=== PATIENT | female | born 1975 | race Caucasian/White ===

== ENCOUNTER → 2016-12-23 | Outpatient (CLI) | payer MEDICARE ==
[~2016-12-23] MED LIST: ALBU0.08 NEB; ALBU6.7H INH; ALPR.25 PO; BUDE.25I NEB; CLEAPOW6 PO; COMMODE 3:1; DILT60CA PO; DILTCD120 PO; FLUT1INH7 INH; FLUT1SPR5 EACH NARE; HOSPITAL BED SEMI; INFE50IN2 IV-CENTRAL; LORTA5 PO; METO25 PO; METO25TA3 PO; MONT10 PO; MONT10TA2 PO; NP T60TA PO; PANT40TA3 PO; PATA0.2S EACH EYE; PATA0.6S; PATADAY EACH EYE; PATANASE INH; PROT40TA PO; PROV10TA PO; TIRO150C PO; VITADRO3 PO; WALKER ROLLING; WHEELCHAIR RENTAL; ZOLE5P IV
[2016-12-23 14:00] LABS: BASOPHIL # 0.1 TH/MM3 (0-0.2); EOSINOPHIL # 0.4 TH/MM3 (0-0.4); EOSINOPHIL % 3.8 % (0.0-4.0); HEMATOCRIT 37.7 % (35.0-46.0); HEMO FLAGS DIFF FINAL; LYMPHOCYTE # 1.9 TH/MM3 (1.0-4.8); MEAN CORPUSCULAR HEMOGLOBIN 27.7 PG (27.0-34.0); MEAN CORPUSCULAR HGB CONC 32.6 % (32.0-36.0); MONO % 5.2 % (0.0-8.0); PLATELET COUNT 264 TH/MM3 (150-450); RED BLOOD COUNT 4.44 MIL/MM3 (4.00-5.30); WHITE BLOOD COUNT 9.9 TH/MM3 (4.0-11.0)
[2016-12-23 14:11] LABS: BACTERIA, URINE FEW /hpf; BLOOD, URINE LARGE (NEG); GLUCOSE,URINE NEG (NEG); KETONE, URINE NEG (NEG); NITRITE,URINE NEG (NEG); SQUAMOUS EPITHELIAL CELL URINE 1 /hpf (0-5)
[2016-12-23 14:12] LABS: URINE COLOR LIGHT-RED (YELLW/STRAW)
[2016-12-23 14:29] LABS: ANION GAP 6 MEQ/L (5-15); AST (GOT) 10 U/L (15-37); BICARBONATE 25.8 MEQ/L (21.0-32.0); BLOOD UREA NITROGEN 9 MG/DL (7-18); CHLORIDE 107 MEQ/L (98-107); GLOMERULAR FILTRATION RATE 90 ML/MIN (>89); GLUCOSE,FASTING 90 MG/DL (74-99); POTASSIUM 3.8 MEQ/L (3.5-5.1); SODIUM (NA) 139 MEQ/L (136-145)
[2016-12-23 14:36] LABS: ALKALINE PHOSPHATASE 77 U/L (45-117); ALT (GPT) 22 U/L (10-53); TOTAL BILIRUBIN ADULT 0.5 MG/DL (0.2-1.0)
[2016-12-23 14:40] LABS: BHCG SCREEN QUALITATIVE LESS THAN 1 MIU/ML (0-5)
== END ==
LOC: CPRE 12:51
PROVIDERS: ATTEND Obstetrics & Gynecology
DX: Z01.812 Encounter for preprocedural laboratory examination (principal); N92.0 Excessive and frequent menstruation with regular cycle
CPT/HCPCS: 36415; 80053; 81001; 84703; 85025

== ENCOUNTER → 2016-12-30 | Day surgery (SDC) | payer MEDICARE ==
[~2016-12-30] VITALS: Ht 154.9 cm; Wt 62.0 kg
[~2016-12-30] MED LIST changes: +ACETAMINOPHEN 1000 MG/100 ML 100 ML IV ONE; +ACETAMINOPHEN/HYDROcodone 325 MG/5 MG TAB PO PRN; -ALPR.25 PO; +APREPITANT 40 MG CAP ONE; -BUDE.25I NEB; +CHLORHEXIDINE GLUCONATE 2 % 1 PACK (2 CLOTHS) TOPICAL PRN; -CLEAPOW6 PO; -COMMODE 3:1; +DEXAMETHASONE SOD PHOS 4 MG/ML VIAL IV ONE; -DILTCD120 PO; +DO NOT ADM ANY ANTICOAGULANT DRUGS PRN; -HOSPITAL BED SEMI; +INSULIN HUMAN REGULAR 1,000 UNITS/10 ML VIAL SQ PRN; +KETOROLAC TROMETHAMINE 30 MG/ML (IVP) VIAL IV PUSH ONE; +LACTATED RINGER'S 1000 ML IV PRN; +LIDOCAINE HCL 1% PF 5 ML AMPULE OTHER ONE; -LORTA5 PO; -METO25 PO; +METOPROLOL TARTRATE 25 MG TAB PO PRN; +MIDAZOLAM HCL 2 MG/2 ML VIAL IV ONE; -MONT10 PO; -NP T60TA PO; +ONDANSETRON HCL 4 MG/2 ML VIAL IV PUSH ONE; +ONDANSETRON HCL 4 MG/2 ML VIAL IV PUSH PRN; -PATADAY EACH EYE; -PATANASE INH; +POVIDONE IODINE 5% (ANTISEPSIS KIT) 4 APPLICATIONS EACH NARE PRN; +PROPOFOL 200 MG/20 ML AMP IV ONE; -PROT40TA PO; +SODIUM CHLORID 0.9% 500 ML IV PRN; +SODIUM CHLORIDE 0.9% FLUSH 10 ML FLUSH IV FLUSH PRN; -WALKER ROLLING; -WHEELCHAIR RENTAL; +ePHEDrine/NS 25 MG/5 ML SYR IV ONE
--- NOTE | 2016-12-30 09:49 | MP ---
cc: MIAH JC DATE OF SURGERY: 12/30/2016 PREOPERATIVE DIAGNOSIS Menometrorrhagia. POSTOPERATIVE DIAGNOSIS Menometrorrhagia. PROCEDURE Examination under anesthesia, dilation and curettage of the uterus, hysteroscopic exam, and endometrial ablation. ANESTHESIA General. SURGEON Janette Jc MD FINDINGS On examination under anesthesia the vagina was clean, the cervix was small and nulliparous without any lesions. The uterus was normal size, shape and consistency, freely mobile. The adnexa was negative for masses. The hysteroscopic exam revealed a normal endometrial cavity without any polyps or submucous myomas. The endometrium was noted to be fluffy. D&C revealed a normal amount of endometrial tissue. The endometrial ablation was carried out with a length of 4.5 x a width of 3.5, with excellent results. COMPLICATIONS None. COUNTS Correct. ESTIMATED BLOOD LOSS Minimal. CONDITION The patient tolerated the procedure well and went to the recovery room in good condition. DETAILS OF PROCEDURE The patient was taken to the operating room, identified by name band and verbally, given a general anesthetic, placed in the dorsal lithotomy position, prepped and draped in the usual sterile fashion for vaginal surgery. A timeout was taken and examination under anesthesia was carried out. A speculum was placed into the vagina. The anterior lip of the cervix was grasped with a single-tooth tenaculum. The cervix was serially dilated without difficulty, the hysteroscope inserted and the entire endometrial cavity carefully inspected. It was a difficult hysteroscopy, probably suboptimal. At this point the hysteroscope was removed and the endometrial ablation device placed the length of 4.5 and width of 3.5. Ablation was carried out without difficulty. At this point all instruments were removed. She tolerated the procedure well. She did get Emend and multiple other medications to prevent post-op nausea. Janette Jc MD RJV/BT /9:29 AM /9:35 AM
[2016-12-30 10:38] VITALS: BP 101/71; PULSE 77; RESP 18; TEMP 97.4; O2SAT 98
--- NOTE | 2016-12-30 14:52 | EKG ---
Date Performed: 12/30/2016 Time Performed: 07:18:26 PTAGE: 41 years EKG: Sinus rhythm NORMAL ECG NO PREVIOUS TRACING DOCTOR: Yahir Garcia Interpretating Date/Time 12/30/2016 14:51:41
== END | disposition home or self-care (01) ==
LOC: HSDC 06:03
PROVIDERS: ATTEND Obstetrics & Gynecology
DX: N92.1 Excessive and frequent menstruation with irregular cycle (principal); J45.909 Unspecified asthma, uncomplicated; E03.9 Hypothyroidism, unspecified; K21.9 Gastro-esophageal reflux disease without esophagitis; M79.7 Fibromyalgia; I49.9 Cardiac arrhythmia, unspecified; Z01.810 Encounter for preprocedural cardiovascular examination
CPT/HCPCS: 00952; 58563; 88305; 93005; J0131; J1642; J7120; J8501; J1100; J1885; J2250; J2405; J3010

== ENCOUNTER 2017-08-16 20:37 | Inpatient (IN) | payer MEDICARE, MEDICAID ==
[~2017-08-16 20:37] MED LIST changes: -ACETAMINOPHEN 1000 MG/100 ML 100 ML IV ONE; -ACETAMINOPHEN/HYDROcodone 325 MG/5 MG TAB PO PRN; -APREPITANT 40 MG CAP ONE; -CHLORHEXIDINE GLUCONATE 2 % 1 PACK (2 CLOTHS) TOPICAL PRN; -DEXAMETHASONE SOD PHOS 4 MG/ML VIAL IV ONE; -DO NOT ADM ANY ANTICOAGULANT DRUGS PRN; -INSULIN HUMAN REGULAR 1,000 UNITS/10 ML VIAL SQ PRN; -KETOROLAC TROMETHAMINE 30 MG/ML (IVP) VIAL IV PUSH ONE; -LACTATED RINGER'S 1000 ML IV PRN; -LIDOCAINE HCL 1% PF 5 ML AMPULE OTHER ONE; -METOPROLOL TARTRATE 25 MG TAB PO PRN; -MIDAZOLAM HCL 2 MG/2 ML VIAL IV ONE; -ONDANSETRON HCL 4 MG/2 ML VIAL IV PUSH ONE; -ONDANSETRON HCL 4 MG/2 ML VIAL IV PUSH PRN; -POVIDONE IODINE 5% (ANTISEPSIS KIT) 4 APPLICATIONS EACH NARE PRN; -PROPOFOL 200 MG/20 ML AMP IV ONE; -SODIUM CHLORID 0.9% 500 ML IV PRN; -SODIUM CHLORIDE 0.9% FLUSH 10 ML FLUSH IV FLUSH PRN; -ePHEDrine/NS 25 MG/5 ML SYR IV ONE
[2017-08-16 20:39] VITALS: BP 150/71; PULSE 135; RESP 18; TEMP 97.7; O2SAT 99
[2017-08-16] MEDS ORDERED: SODIUM CHLOR 0.9% 1000 ML INJ 1,000 ML IV SCH (20:53)
[2017-08-16 20:55] VITALS: BP 132/62; PULSE 83; RESP 16; O2SAT 98
--- NOTE | 2017-08-16 20:55 | PD ---
HPI Chief Complaint: Abdominal Pain Time Seen by Provider: 20:46 Travel History International Travel<30 days: No Contact w/Intl Traveler<30days: No Traveled to known affect area: No History of Present Illness HPI 42-year-old female with history of hypertension, asthma, breast cancer, currently on oral chemotherapy, gallstones, colostomy status post perforated colon, presents emergency department for evaluation of right upper quadrant pain. Patient states this began this morning and has worsened throughout the day. At this time she rates it a 7 out of 10, constant. She does recall that yesterday her colostomy started having liquidy stools. She denies any jett red or black tarry output. She denies any fever or chills. Patient states she has been nauseous without any vomiting. She has been eating less due to a poor appetite and often supplements with shakes. She reports normal urinary output. She has not been on any recent antibiotics. She has followed at [facility] and by Dr. Renee in [place] for her cancer. Her only other abdominal surgeries are . She has no other symptoms to report at this time. PFSH Past Medical History Anemia: Yes Arthritis: No Asthma: Yes Autoimmune Disease: No Anxiety: Yes Depression: No Heart Rhythm Problems: Yes (tachycardia) Cancer: Yes (LEUKEMIA, SKIN CA, SUBQ T CELL, LEFT BREAST CA, THYROID CA) Cardiovascular Problems: Yes High Cholesterol: No Chemotherapy: Yes Chest Pain: No Congestive Heart Failure: No COPD: Yes Cerebrovascular Accident: No Diabetes: No Diminished Hearing: No Endocrine: Yes Gastrointestinal Disorders: Yes (PERFORATED COLON, DIVERTICULOSIS) GERD: Yes Genitourinary: No Headaches: Yes Hepatitis: No Hiatal Hernia: No Hypertension: Yes Immune Disorder: Yes (weaken by chemotherapy) Implanted Vascular Access Dvce: Yes Kidney Stones: Yes Musculoskeletal: Yes (OSTEOPOROSIS) Neurologic: Yes (SHUNT USED FOR CHEMO) Psychiatric: Yes (ANXIETY) Reproductive: No Respiratory: Yes (ASTHMA, BORDERINE COPD) Integumentary: Yes (RASH, SKIN CA) Immunizations Current: Yes Migraines: Yes Radiation Therapy: Yes Renal Failure: No Seizures: No Sickle Cell Disease: No Sleep Apnea: No Thyroid Disease: Yes (thyroid removed r/t cancer) Ulcer: No ?: Not Menopausal: No : 2 Para: 2 Past Surgical History Abdominal Surgery: Yes (colostomy) AICD: No Arteriovenous Shunt: No Body Medical Devices: o[place], talia in left lung, RIGHT CHEST PORT Cardiac Surgery: No Section: Yes Ear Surgery: No Endocrine Surgery: Yes (Thyroid removed) Eye Surgery: Yes (Cataract removed) Genitourinary Surgery: No Gynecologic Surgery: Yes (2 C-sections, 4X LEFT LUMPECTOMY) Insulin Pump: No Joint Replacement: No Neurologic Surgery: Yes (RESEVORE in right right side OF SCALP for chemo) Oral Surgery: No Pacemaker: No Thoracic Surgery: Yes (LLL of lung small piece) Other Surgery: Yes (DEVIATE SEPTUM) Social History Alcohol Use: Yes (RARELY) Tobacco Use: No Substance Use: No Allergies-Medications (Allergen,Severity, Reaction): Coded Allergies: aspirin (Unverified Allergy, Severe, 08/16/17) ibuprofen (Verified Allergy, Severe, RESPIRATORY DISTRESS, 08/16/17) latex (Unverified Allergy, Severe, 08/16/17) onion (Verified Allergy, Severe, SHORTNESS OF BREATH, 08/16/17) peanut (Verified Allergy, Severe, Anaphylaxis, 08/16/17) shellfish derived (Verified Allergy, Severe, Anaphylaxis, 08/16/17) Fish Containing Products (Unverified Allergy, Mild, 08/16/17) bee venom protein (honey bee) (Unverified Allergy, Mild, 08/16/17) clindamycin (Unverified Allergy, Mild, Rash, 08/16/17) fluconazole (Unverified Allergy, Mild, 08/16/17) ipratropium (Unverified Allergy, Mild, 08/16/17) penicillin G (Unverified Allergy, Mild, Rash, 08/16/17) Uncoded Allergies: LIDOCAINE WITH EPINEPHRINE (Allergy, Severe, Anaphylaxis, 12/30/16) PT STATES SHE IS ALLERGIC TO THE PRESERVATIVE IN LIDOCAINE WITH EPI. SHE CAN TOLERAT LIDOCAINE SEPARATLY AND EPINEPHRINE SEPERATLY ITS THE PRESERVATIVE Reported Meds & Prescriptions Reported Meds & Active Scripts Active Reported Epinephrine Inj (Epinephrine) 0.15 Mg/0.3 Ml Inj 0.3 Mg IM DIRECTED Ondansetron (Ondansetron HCl) 8 Mg Tab 8 Mg PO TID Sumatriptan (Sumatriptan Succinate) 25 Mg Tab 25 Mg PO ONCE PRN If a satisfactory response has not been obtained at 2 hours, a second dose may be administered Flexeril (Cyclobenzaprine HCl) 10 Mg Tab 10 Mg PO TID Tirosint (Levothyroxine Sodium) 13 Mcg Cap 13 Mcg DAILY Erivedge (Vismodegib) 150 Mg Cap Breo Ellipta Inh (Fluticasone/Vilanterol) 200-25 Mcg/Act Inh 1 Puff INH DAILY Use daily at the same time. Singulair (Montelukast Sodium) 10 Mg Tab 10 Mg PO HS Infed Inj (Iron Dextran) 100 Mg/2 Ml Inj 100 Mg IV-CENTRAL MONTHLY PRN Flonase Nasal [place] (Fluticasone Nasal [place]) 50 Mcg/Act [place] 50 Mcg EACH NARE BID Proventil Hfa 6.7 GM Inh (Albuterol Sulfate) 90 Mcg/Act Aer 2 Puff INH Q6H PRN Albuterol Neb (Albuterol Sulfate) 2.5 Mg/3 Ml Neb 2.5 Mg NEB Q4HR NEB PRN Metoprolol Tartrate 25 Mg Tab 12.5 Mg PO BID Diltiazem ER 12 HR (Diltiazem HCl) 60 Mg Caper 60 Mg PO DAILY Pantoprazole (Pantoprazole Sodium) 40 Mg Tab 40 Mg PO BID Review of Systems Except as stated in HPI: all other systems reviewed are Neg Physical Exam Narrative GENERAL: Well-nourished female patient, lying in bed. Appears uncomfortable but without any significant distress. SKIN: Focused skin assessment warm/dry. HEAD: Atraumatic. Normocephalic. EYES: Pupils equal and round. No scleral icterus. No injection or drainage. ENT: No nasal bleeding or discharge. Mucous membranes pink and moist. NECK: Trachea midline. No JVD. CARDIOVASCULAR: Tachycardic rate and rhythm. No murmur appreciated. RESPIRATORY: No accessory muscle use. Clear to auscultation. Breath sounds equal bilaterally. GASTROINTESTINAL: Abdomen soft, nondistended. Right upper quadrant epigastric tenderness to palpation. No guarding. No rebound tenderness. Patient does have a colostomy in place. MUSCULOSKELETAL: No obvious deformities. No clubbing. No cyanosis. No edema. NEUROLOGICAL: Awake and alert. No obvious cranial nerve deficits. Motor grossly within normal limits. Normal speech. PSYCHIATRIC: Appropriate mood and affect; insight and judgment normal. Data Data Last Documented VS Vital Signs Date Time Temp Pulse Resp B/P (MAP) Pulse Ox O2 Delivery O2 Flow Rate FiO2 08/16/17 21:05 14 97 Room Air 08/16/17 20:55 83 08/16/17 20:39 97.7 Orders Orders Complete Blood Count With Diff (08/16/17 20:53) Comprehensive Metabolic Panel (08/16/17 20:53) Lipase (08/16/17 20:53) Prothrombin Time / Inr (Pt) (08/16/17 20:53) Act Partial Throm Time (Ptt) (08/16/17 20:53) Urinalysis - C+S If Indicated (08/16/17 20:53) Ct Abd/Pel W Iv Contrast(Rout) (08/16/17 20:53) Iv Access Insert/Monitor (08/16/17 20:53) Ecg Monitoring (08/16/17 20:53) Oximetry (08/16/17 20:53) Sodium Chlor 0.9% 1000 Ml Inj (Ns 1000 M (08/16/17 20:53) Sodium Chloride 0.9% Flush (Ns Flush) (08/16/17 21:00) Prochlorperazine Inj (Compazine Inj) (08/16/17 21:00) Diphenhydramine Inj (Benadryl Inj) (08/16/17 21:00) C Diff Toxin Pcr (08/16/17 20:56) Lactic Acid Sepsis Protocol (08/16/17 20:57) Hydromorphone Pf Inj (Dilaudid Pf Inj) (08/16/17 21:15) Labs Laboratory Tests Test 08/16/17 21:10 White Blood Count 8.0 TH/MM3 Red Blood Count 4.46 MIL/MM3 Hemoglobin 12.3 GM/DL Hematocrit 37.9 % Mean Corpuscular Volume 84.9 FL Mean Corpuscular Hemoglobin 27.6 PG Mean Corpuscular Hemoglobin Concent 32.5 % Red Cell Distribution Width 15.3 % Platelet Count 287 TH/MM3 Mean Platelet Volume 9.7 FL Neutrophils (%) (Auto) 55.8 % Lymphocytes (%) (Auto) 31.2 % Monocytes (%) (Auto) 6.3 % Eosinophils (%) (Auto) 6.0 % Basophils (%) (Auto) 0.7 % Neutrophils # (Auto) 4.4 TH/MM3 Lymphocytes # (Auto) 2.5 TH/MM3 Monocytes # (Auto) 0.5 TH/MM3 Eosinophils # (Auto) 0.5 TH/MM3 Basophils # (Auto) 0.1 TH/MM3 CBC Comment DIFF FINAL Differential Comment Prothrombin Time 10.2 SEC Prothromb Time International Ratio 1.0 RATIO Activated Partial Thromboplast Time 28.2 SEC Lactic Acid Level 1.1 mmol/L MDM Medical Decision Making Medical Screen Exam Complete: Yes Emergency Medical Condition: Yes Medical Record Reviewed: Yes Differential Diagnosis Cholecystitis versus cholelithiasis versus gastritis versus pancreatitis versus diverticulitis versus obstruction versus colitis versus gastroenteritis Narrative Course 42-year-old female presents emergency department for evaluation of abdominal pain worsening throughout the day. Patient appears nontoxic. She is initially tachycardic. She is treated for pain and given IV normal saline fluid bolus. Abdominal exam is with tenderness in the epigastrium and right upper quadrant. I discussed the patient my attending physician. She has also assessed the patient. lab work and CT imaging is ordered. 2300 CT imaging is pending; care is assumed by my attending who will disposition pt appropriately. Diagnosis Primary Impression: Abdominal pain Qualified Codes: R10.11 - Right upper quadrant pain Condition: Stable KumarLiliana GAYTAN August 16, 2017 20:55
[2017-08-16] MEDS ORDERED: VISM150C (21:00)
[2017-08-16] MEDS ORDERED: SODIUM CHLORIDE 0.9% FLUSH 10 ML FLUSH IV FLUSH PRN (21:00)
[2017-08-16] MEDS ORDERED: PROCHLORPERAZINE INJ 10 MG/2 ML VIAL IV PUSH ONE (21:00)
[2017-08-16] MEDS ORDERED: TIRO13CA (21:00)
[2017-08-16] MEDS ORDERED: EPIN1INJ24 IM (21:00)
[2017-08-16] MEDS ORDERED: ONDA8TAB7 PO (21:00)
[2017-08-16] MEDS ORDERED: CYCL10TA PO (21:00)
[2017-08-16] MEDS ORDERED: diphenhydrAMINE HCL 50 MG/ML VIAL IV PUSH ONE (21:00)
[2017-08-16] MEDS ORDERED: SUMA25TA2 PO (21:00)
[2017-08-16] MEDS ORDERED: HYDROmorphone HCL PF 1 MG/ML VIAL IVS ONE (21:00)
--- NOTE | 2017-08-16 21:02 | PD ---
Physical Exam Narrative General: The patient is a well-developed well-nourished female, uncomfortable appearing on exam. Head and Neck exam: Head is normocephalic atraumatic. Eyes: EOMI, pupils are equal round and reactive to light. Nose: Midline septum with pink mucous membranes Mouth: Dentition unremarkable. Moist mucus membranes. Posterior oropharynx is not erythematous. No tonsillar hypertrophy. Uvula midline. Airway patent. Neck: No palpable lymphadenopathy. No nuchal rigidity. No thyromegaly. Cardiovascular: Sinus bradycardia in the 50s without murmurs, gallops, or rubs. No pulse deficit to the extremities on simultaneous auscultation and palpation of her radial artery. The patient has a an [id number] in place in the right upper chest that appears to be in good repair without any surrounding erythema, edema , or drainage. No tenderness on palpation. Lungs: Clear to auscultation bilaterally. No wheezes, rhonchi, or rales. Abdomen: Soft, with tenderness on palpation in the right upper and lower quadrant, reportedly worse on palpation of the right upper quadrant, no other tenderness on palpation of the other quadrants of the abdomen, colostomy bag is in place and appears to be in good repair. No guarding, rebound, or rigidity. Normal bowel sounds are audible. Negative Paz sign. Extremities: No clubbing, cyanosis, or edema. 2+ pulses in all 4 extremities. No calf tenderness on palpation. Back: No costovertebral angle tenderness to palpation. Neurologic Exam: Grossly nonfocal. Skin Exam: No rash noted. Intact skin that is warm and dry. Data Data Last Documented VS Vital Signs Date Time Temp Pulse Resp B/P (MAP) Pulse Ox O2 Delivery O2 Flow Rate FiO2 08/17/17 00:15 53 16 144/65 (91) 98 Room Air 08/16/17 20:39 97.7 Orders Orders Complete Blood Count With Diff (08/16/17 20:53) Comprehensive Metabolic Panel (08/16/17 20:53) Lipase (08/16/17 20:53) Prothrombin Time / Inr (Pt) (08/16/17 20:53) Act Partial Throm Time (Ptt) (08/16/17 20:53) Urinalysis - C+S If Indicated (08/16/17 20:53) Ct Abd/Pel W Iv Contrast(Rout) (08/16/17 20:53) Iv Access Insert/Monitor (08/16/17 20:53) Ecg Monitoring (08/16/17 20:53) Oximetry (08/16/17 20:53) Sodium Chlor 0.9% 1000 Ml Inj (Ns 1000 M (08/16/17 20:53) Sodium Chloride 0.9% Flush (Ns Flush) (08/16/17 21:00) Prochlorperazine Inj (Compazine Inj) (08/16/17 21:00) Diphenhydramine Inj (Benadryl Inj) (08/16/17 21:00) C Diff Toxin Pcr (08/16/17 20:56) Lactic Acid Sepsis Protocol (08/16/17 20:57) Hydromorphone Pf Inj (Dilaudid Pf Inj) (08/16/17 21:15) Potassium Chloride (Kcl) (08/16/17 22:30) Calcium Chloride Inj (Calcium Chloride I (08/16/17 22:30) Potassium Chlor 20 Meq Premix (Kcl 20 Me (08/16/17 22:24) Iohexol 350 Inj (Omnipaque 350 Inj) (08/16/17 22:45) Urine Culture (08/17/17 00:05) Vancomycin Inj (Vancomycin Inj) (08/17/17 00:24) Aztreonam Inj (Azactam Inj) (08/17/17 00:24) Metronidazole 500 Mg Inj (Flagyl 500 Mg (08/17/17 00:24) Magnesium (Mg) (08/17/17 00:30) Admit Order (Ed Use Only) (08/17/17 00:32) Consult General Surgery (08/17/17 ) Labs Laboratory Tests Test 08/16/17 21:10 08/17/17 00:05 White Blood Count 8.0 TH/MM3 Red Blood Count 4.46 MIL/MM3 Hemoglobin 12.3 GM/DL Hematocrit 37.9 % Mean Corpuscular Volume 84.9 FL Mean Corpuscular Hemoglobin 27.6 PG Mean Corpuscular Hemoglobin Concent 32.5 % Red Cell Distribution Width 15.3 % Platelet Count 287 TH/MM3 Mean Platelet Volume 9.7 FL Neutrophils (%) (Auto) 55.8 % Lymphocytes (%) (Auto) 31.2 % Monocytes (%) (Auto) 6.3 % Eosinophils (%) (Auto) 6.0 % Basophils (%) (Auto) 0.7 % Neutrophils # (Auto) 4.4 TH/MM3 Lymphocytes # (Auto) 2.5 TH/MM3 Monocytes # (Auto) 0.5 TH/MM3 Eosinophils # (Auto) 0.5 TH/MM3 Basophils # (Auto) 0.1 TH/MM3 CBC Comment DIFF FINAL Differential Comment Prothrombin Time 10.2 SEC Prothromb Time International Ratio 1.0 RATIO Activated Partial Thromboplast Time 28.2 SEC Blood Urea Nitrogen 6 MG/DL Creatinine 0.50 MG/DL Random Glucose 85 MG/DL Total Protein 5.9 GM/DL Albumin 3.1 GM/DL Calcium Level 6.8 MG/DL Alkaline Phosphatase 58 U/L Aspartate Amino Transf (AST/SGOT) 13 U/L Alanine Aminotransferase (ALT/SGPT) 14 U/L Total Bilirubin 0.2 MG/DL Sodium Level 146 MEQ/L Potassium Level 2.9 MEQ/L Chloride Level 114 MEQ/L Carbon Dioxide Level 24.2 MEQ/L Anion Gap 8 MEQ/L Estimat Glomerular Filtration Rate 137 ML/MIN Lactic Acid Level 1.1 mmol/L Protein Corrected Calcium 7.4 MG/DL Magnesium Level 1.4 MG/DL Lipase 82 U/L Urine Color LIGHT-YELLOW Urine Turbidity HAZY Urine pH 6.5 Urine Specific [place] 1.023 Urine Protein NEG mg/dL Urine Glucose (UA) NEG mg/dL Urine Ketones NEG mg/dL Urine Occult Blood NEG Urine Nitrite NEG Urine Bilirubin NEG Urine Urobilinogen LESS THAN 2.0 MG/DL Urine Leukocyte Esterase LARGE Urine RBC 2 /hpf Urine WBC 89 /hpf Urine Squamous Epithelial Cells 11 /hpf Urine Transitional Epithelial Cells 2 /hpf Urine Renal Epithelial Cells 1 /hpf Microscopic Urinalysis Comment CULTURE INDICATED MDM Medical Record Reviewed: Yes Supervised Visit with KIRK: Yes Narrative Course I, Dr. Gilliam, have reviewed the advance practice practitioner's documentation and am in agreement, met with the patient face to face, made the diagnosis, and the medical decision making was done by me. The patient was initially evaluated by Liliana, the nurse practitioner. Please see their complete history and physical. *My assessment and Findings: The patient presents with a history of abdominal pain that reportedly began this morning. She reports that the abdominal pain is a cramping sensation that has been constant and gradually worsening with time. She reports the pain is located in the right upper quadrant of the abdomen. She reports that the pain is now sharp in character. She reports that she last ate at noon. Her diet has mainly consisted of boost shakes due to a decreased appetite and she is currently on chemotherapy for breast cancer. She reports that she has had increased liquidy stool from her colostomy bag. She denies having any blood in the stool or mucus in the stool. She reports that she has had nausea and vomiting 2 today. She denies having any known fevers. She reports that she last was on antibiotic 2-1/2 months ago for a skin infection surrounding a site where a skin cancer was removed. She reports that she believes that she was on doxycycline for 10 days. The patient's examination is remarkable for right upper and lower quadrant tenderness on palpation. During the course of the patient's emergency department visit, the patient's history, examination, and differential diagnosis were reviewed with the patient. The patient was placed on a refinery operator assistant with oximetry and frequent blood pressure monitoring. The patient had IV access obtained and blood work sent for analysis. The patient was initially provided hydromorphone for pain, Benadryl 25 mg IV for itching, Compazine 5 mg IV for nausea, normal saline 1 L IV fluid bolus. The patient's laboratory studies were reviewed and remarkable for a white count of 8, hemoglobin 12.3, platelets 287 was 6 eosinophils, Radiology studies were reviewed and remarkable for Last Impressions Abdomen/Pelvis CT 08/16/[id number] Signed Impressions: CONCLUSION: 1. Cholelithiasis and possibility of acute cholecystitis should be entertained in the appropriate clinical setting. 2. Choledocholithiasis is not excluded. 3. Anterior abdominal wall hernia without signs of incarceration or obstructio n. Regarding the patient's CT scan findings a call was placed out to the general surgeon, I spoke to Dr. Nando Smith regarding this patient's case. He agreed to see the patient in consultation. He is agreeable with the plan for the patient to be started on an initial dose of IV antibiotic. The patient has a penicillin allergy, therefore the patient was covered with broad-spectrum antibiotic to include Azactam, Flagyl, and vancomycin. Regarding the possibility of choledocholithiasis, this seems unlikely in this patient as the patient's alkaline phosphatase is not elevated, total bilirubin is within normal limits. The patient additionally has a normal lipase. The patient's results were discussed with the patient, including the plan of care. I explained that further testing and/ or monitoring is indicated based on the patient's history, examination, and/ or laboratory findings. Therefore, I recommended admission for additional evaluation. The patient expressed understanding and was agreeable with this plan. The patient was admitted to the hospital in stable condition and sent to a bed under the care of the [facility] service. Physician Communication Physician Communication The patient's case including history, pertinent physical examination findings, and laboratory studies were discussed with Dr. Smith, the general surgeon, Dr. Azar, the hospitalist. It was agreed that the patient would be admitted to the [facility] service. Diagnosis Primary Impression: Abdominal pain Qualified Codes: R10.11 - Right upper quadrant pain Additional Impression: Acute cholecystitis Admitting Information Admitting Physician Requests: Admit Jennifer Gilliam MD August 16, 2017 21:02
[2017-08-16 21:05] VITALS: RESP 14; O2SAT 97
[2017-08-16] MEDS ORDERED: HYDROmorphone HCL PF 0.5 MG/0.5 ML SYRINGE IV ONE (21:15)
[2017-08-16 21:46] LABS: AUTOMATED NEUTROPHIL # 4.4 TH/MM3 (1.8-7.7); BASOPHIL # 0.1 TH/MM3 (0-0.2); BASOPHIL % 0.7 % (0.0-2.0); EOSINOPHIL # 0.5 TH/MM3 (0-0.4); HEMATOCRIT 37.9 % (35.0-46.0); HEMOGLOBIN 12.3 GM/DL (11.6-15.3); LYMPH % 31.2 % (9.0-44.0); LYMPHOCYTE # 2.5 TH/MM3 (1.0-4.8); MEAN CELL VOLUME 84.9 FL (80.0-100.0); MEAN CORPUSCULAR HEMOGLOBIN 27.6 PG (27.0-34.0); MEAN CORPUSCULAR HGB CONC 32.5 % (32.0-36.0); MEAN PLATELET VOLUME 9.7 FL (7.0-11.0); MONO % 6.3 % (0.0-8.0); MONOCYTE # 0.5 TH/MM3 (0-0.9); NEUT % 55.8 % (16.0-70.0); PLATELET COUNT 287 TH/MM3 (150-450); RED BLOOD COUNT 4.46 MIL/MM3 (4.00-5.30); RED CELL DISTRIBUTION WIDTH 15.3 % (11.6-17.2)
[2017-08-16 21:57] LABS: PROTHROMBIN TIME - PATIENT 10.2 SEC (9.8-11.6)
[2017-08-16 22:20] LABS: ALBUMIN 3.1 GM/DL (3.4-5.0); BICARBONATE 24.2 MEQ/L (21.0-32.0); CALCIUM 6.8 MG/DL (8.5-10.1); CREATININE 0.5 MG/DL (0.50-1.00); TOTAL BILIRUBIN ADULT 0.2 MG/DL (0.2-1.0); TOTAL PROTEIN 5.9 GM/DL (6.4-8.2)
[2017-08-16 22:23] LABS: CALCIUM-PROTEIN CORRECTED 7.4 MG/DL (8.5-10.1)
[2017-08-16] MEDS ORDERED: POTASSIUM CHLOR 20 MEQ PREMIX 100 ML IV STA (22:24)
[2017-08-16] MEDS ORDERED: POTASSIUM CHLORIDE 10 MEQ CONTROLLED RELEASE TAB PO ONE (22:30)
[2017-08-16] MEDS ORDERED: CALCIUM CHLORIDE INJ 1 GM in SODIUM CHLORIDE 0.9% INJ 90 ML IV ONE (22:30)
[2017-08-16] MEDS ORDERED: IOHEXOL 350 MG/ML 10 ML VIAL (for RAD DIAG) IVCONTRAST ONE (22:45)
[2017-08-16 23:21] VITALS: BP 116/76; PULSE 55; RESP 14; O2SAT 98
[2017-08-17] VITALS (8 sets, daily range): BP systolic 101–144; BP diastolic 58–65; PULSE 53–99; RESP 16–18; TEMP 97.2–98.3; O2SAT 96–99
--- NOTE | 2017-08-17 00:09 | RADRPT ---
EXAM DATE: 08/16/2017 11:58 PM EDT AGE/SEX: 42 years / Female INDICATIONS: Abdomen pain. CLINICAL DATA: This is the patient's initial encounter. Patient reports that signs and symptoms have been present for 1 day and indicates a pain score of 5/10. MEDICAL/SURGICAL HISTORY: Carcinoma, breast. Renal calculi. Leukemia. COPD, HTN, perforated bowel. Colostomy. Thyroidectomy. Lumpectomy. ORAL CONTRAST: No oral contrast ingested. RADIATION DOSE: 5.14 CTDI (mGy) COMPARISON: No prior exams available for comparison. TECHNIQUE: Multiple contiguous axial images were obtained through the abdomen and pelvis following b olus infusion of 100 ml Omnipaque 350 (iohexol) nonionic water-soluble contrast as a single exam do se. No oral contrast ingested. Using automated exposure control and adjustment of the mA and/or kV a ccording to patient size, the radiation dose was kept as low as reasonably achievable to obtain optim al diagnostic quality images. FINDINGS: Abdomen CT: The liver, spleen, pancreas, kidneys, adrenals are unremarkable. There is no evidence for any appreci able pathological adenopathy, free fluid, or bowel obstruction. Multiple gallstones are present and t here may be slight degree of pericholecystic fluid as well. The common bile duct measures almost 5 to 6 mm a questionable distal common bile duct stone. Possibility of choledocholithiasis is not exclude d. There is anterior abdominal wall hernia with herniation of loops of small bowel without signs of i ncarceration or obstruction and the opening measures almost 7.[address]: There is no evidence for mass, abscess formation, or any significant adenopathy within the pelvis. T here is moderate amount of stool in the colon. CONCLUSION: 1. Cholelithiasis and possibility of acute cholecystitis should be entertained in the appropriate cl inical setting. 2. Choledocholithiasis is not excluded. 3. Anterior abdominal wall hernia without signs of incarceration or obstruction. Electronically signed by: Clover Kelly MD 08/17/2017 12:07 AM EDT
[2017-08-17 00:18] LABS: BILIRUBIN, URINE NEG (NEG); BLOOD, URINE NEG (NEG); GLUCOSE,URINE NEG (NEG); KETONE, URINE NEG (NEG); NITRITE,URINE NEG (NEG); PH, URINE 6.5 (5.0-8.5); RENAL EPITHELIAL CELLS 1 /hpf; SQUAMOUS EPITHELIAL CELL URINE 11 /hpf (0-5); TRANSITIONAL EPI CELLS, URINE 2 /hpf; URINE COLOR LIGHT-YELLOW (YELLW/STRAW); URINE LEUKOCYTE ESTERASE LARGE (NEG)
[2017-08-17] MEDS ORDERED: VANCOMYCIN INJ 1,000 MG in SODIUM CHLOR 0.9% 250 ML INJ 250 ML IV STA (00:24)
[2017-08-17] MEDS ORDERED: AZTREONAM INJ 2,000 MG in SODIUM CHLORIDE 0.9% INJ 100 ML IV STA (00:24)
[2017-08-17] MEDS ORDERED: metroNIDAZOLE 500 MG INJ 100 ML IV STA (00:24)
[2017-08-17] MEDS ORDERED: LACTULOSE SYRUP 20 GM/30 ML CUP PO PRN (00:45)
[2017-08-17] MEDS ORDERED: SENNOSIDES 8.6 MG TAB PO PRN (00:45)
[2017-08-17] MEDS ORDERED: MAGNESIUM HYDROXIDE SUSP 30 ML CUP PO PRN (00:45)
[2017-08-17] MEDS ORDERED: SODIUM CHLORIDE 0.9% FLUSH 10 ML FLUSH IV FLUSH PRN (00:45)
[2017-08-17] MEDS ORDERED: NALOXONE HCL 0.4 MG/ML AMP IV PUSH PRN (00:45)
[2017-08-17] MEDS ORDERED: BISACODYL 10 MG SUPP RECTAL PRN (00:45)
--- NOTE | 2017-08-17 00:55 | HHI.HP ---
[facility] Shreyas Renee DO Admission Diagnosis Abdominal pain, suspected cholecystitis Diagnoses: Chief Complaint: Abdominal pain. Travel History International Travel<30 Days: No Contact w/Intl Traveler <30 Da: No Traveled to Known Affected Are: No Sepsis Criteria SIRS Criteria (2 or more): Heart rate over 90 Sepsis Criteria (SIRS+source): Infect source susp/known History of Present Illness Ms. Reyna is a 42-year-old female with a history of leukemia, breast cancer, asthma, perforated colon status post colostomy who presents to the emergency department due to right upper quadrant abdominal pain. Her pain started on 08/16 in the morning and has progressively gotten worse throughout the day. She denies any fever or chills. She normally has nausea and uses Zofran. She reports some diarrhea as well. No dysuria or hematuria. Denies any chest pain, cough. Review of Systems Except as stated in HPI: all other systems reviewed are Neg Past Family Social History Past Medical History Childhood leukemia, skin cancer, left breast cancer, thyroid cancer Perforated colon, diverticulosis, asthma. Past Surgical History Colostomy, thyroid removal, cataract surgery, left-sided breast lumpectomy Reported Medications Epinephrine Inj (Epinephrine) 0.15 Mg/0.3 Ml Inj 0.3 Mg IM DIRECTED Ondansetron (Ondansetron HCl) 8 Mg Tab 8 Mg PO TID Sumatriptan (Sumatriptan Succinate) 25 Mg Tab 25 Mg PO ONCE PRN If a satisfactory response has not been obtained at 2 hours, a second dose may be administered Flexeril (Cyclobenzaprine HCl) 10 Mg Tab 10 Mg PO TID Tirosint (Levothyroxine Sodium) 13 Mcg Cap 13 Mcg DAILY Erivedge (Vismodegib) 150 Mg Cap Breo Ellipta Inh (Fluticasone/Vilanterol) 200-25 Mcg/Act Inh 1 Puff INH DAILY Use daily at the same time. Singulair (Montelukast Sodium) 10 Mg Tab 10 Mg PO HS Infed Inj (Iron Dextran) 100 Mg/2 Ml Inj 100 Mg IV-CENTRAL MONTHLY PRN Flonase Nasal Gunn[place] (Fluticasone Nasal [place]) 50 Mcg/Act [place] 50 Mcg EACH NARE BID Proventil Hfa 6.7 GM Inh (Albuterol Sulfate) 90 Mcg/Act Aer 2 Puff INH Q6H PRN Albuterol Neb (Albuterol Sulfate) 2.5 Mg/3 Ml Neb 2.5 Mg NEB Q4HR NEB PRN Metoprolol Tartrate 25 Mg Tab 12.5 Mg PO BID Diltiazem ER 12 HR (Diltiazem HCl) 60 Mg Caper 60 Mg PO DAILY Pantoprazole (Pantoprazole Sodium) 40 Mg Tab 40 Mg PO BID Allergies: Coded Allergies: aspirin (Unverified Allergy, Severe, 08/16/17) ibuprofen (Verified Allergy, Severe, RESPIRATORY DISTRESS, 08/16/17) latex (Unverified Allergy, Severe, 08/16/17) onion (Verified Allergy, Severe, SHORTNESS OF BREATH, 08/16/17) peanut (Verified Allergy, Severe, Anaphylaxis, 08/16/17) shellfish derived (Verified Allergy, Severe, Anaphylaxis, 08/16/17) Fish Containing Products (Unverified Allergy, Mild, 08/16/17) bee venom protein (honey bee) (Unverified Allergy, Mild, 08/16/17) clindamycin (Unverified Allergy, Mild, Rash, 08/16/17) fluconazole (Unverified Allergy, Mild, 08/16/17) ipratropium (Unverified Allergy, Mild, 08/16/17) penicillin G (Unverified Allergy, Mild, Rash, 08/16/17) Uncoded Allergies: LIDOCAINE WITH EPINEPHRINE (Allergy, Severe, Anaphylaxis, 12/30/16) PT STATES SHE IS ALLERGIC TO THE PRESERVATIVE IN LIDOCAINE WITH EPI. SHE CAN TOLERAT LIDOCAINE SEPARATLY AND EPINEPHRINE SEPERATLY ITS THE PRESERVATIVE Family History No family history of heart disease. Social History Occasional alcohol use. Denies using tobacco or illicit drugs. Physical Exam Vital Signs Vital Signs Date Time Temp Pulse Resp B/P (MAP) Pulse Ox O2 Delivery O2 Flow Rate FiO2 08/17/17 00:15 53 16 144/65 (91) 98 Room Air 08/16/17 23:21 55 14 116/76 (89) 98 Room Air 08/16/17 21:05 14 97 Room Air 08/16/17 20:55 83 16 132/62 (85) 98 Room Air 08/16/17 20:39 97.7 135 18 150/71 (97) 99 Physical Exam GENERAL: This is a well-nourished, well-developed patient, in no apparent distress. SKIN: No rashes, ecchymoses or lesions. Warm and dry. HEAD: Atraumatic. Normocephalic. No temporal or scalp tenderness. EYES: Pupils equal round and reactive. No injection or drainage. ENT: Nose without bleeding, purulent drainage or septal hematoma. Airway patent. NECK: Trachea midline. No lymphadenopathy. Supple, nontender, no meningeal signs. CARDIOVASCULAR: Regular rate and rhythm without murmurs, gallops, or rubs. No JVD. RESPIRATORY: Clear to auscultation. Breath sounds equal bilaterally. No wheezes , rales, or rhonchi. GASTROINTESTINAL: Abdomen soft, non-tender, nondistended. No guarding. MUSCULOSKELETAL: Extremities without clubbing, cyanosis, or edema. NEUROLOGICAL: Awake and alert. Cranial nerves II through XII intact. No focal neurological deficits. Normal speech. Laboratory Laboratory Tests Test 08/16/17 21:10 08/17/17 00:05 White Blood Count 8.0 Red Blood Count 4.46 Hemoglobin 12.3 Hematocrit 37.9 Mean Corpuscular Volume 84.9 Mean Corpuscular Hemoglobin 27.6 Mean Corpuscular Hemoglobin Concent 32.5 Red Cell Distribution Width 15.3 Platelet Count 287 Mean Platelet Volume 9.7 Neutrophils (%) (Auto) 55.8 Lymphocytes (%) (Auto) 31.2 Monocytes (%) (Auto) 6.3 Eosinophils (%) (Auto) 6.0 Basophils (%) (Auto) 0.7 Neutrophils # (Auto) 4.4 Lymphocytes # (Auto) 2.5 Monocytes # (Auto) 0.5 Eosinophils # (Auto) 0.5 Basophils # (Auto) 0.1 CBC Comment DIFF FINAL Differential Comment Prothrombin Time 10.2 Prothromb Time International Ratio 1.0 Activated Partial Thromboplast Time 28.2 Blood Urea Nitrogen 6 Creatinine 0.50 Random Glucose 85 Total Protein 5.9 Albumin 3.1 Calcium Level 6.8 Alkaline Phosphatase 58 Aspartate Amino Transf (AST/SGOT) 13 Alanine Aminotransferase (ALT/SGPT) 14 Total Bilirubin 0.2 Sodium Level 146 Potassium Level 2.9 Chloride Level 114 Carbon Dioxide Level 24.2 Anion Gap 8 Estimat Glomerular Filtration Rate 137 Lactic Acid Level 1.1 Protein Corrected Calcium 7.4 Lipase 82 Urine Color LIGHT-YELLOW Urine Turbidity HAZY Urine pH 6.5 Urine Specific [place] 1.023 Urine Protein NEG Urine Glucose (UA) NEG Urine Ketones NEG Urine Occult Blood NEG Urine Nitrite NEG Urine Bilirubin NEG Urine Urobilinogen LESS THAN 2.0 Urine Leukocyte Esterase LARGE Urine RBC 2 Urine WBC 89 Urine Squamous Epithelial Cells 11 Urine Transitional Epithelial Cells 2 Urine Renal Epithelial Cells 1 Microscopic Urinalysis Comment CULTURE INDICATED Date/Time Source Procedure Growth Status 08/17/17 00:05 Urine Random Urine Urine Culture Pending Received Result Diagram: 08/16/17210908/16/172109 Imaging Last Impressions Abdomen/Pelvis CT 08/16/172052 Signed Impressions: CONCLUSION: 1. Cholelithiasis and possibility of acute cholecystitis should be entertained in the appropriate clinical setting. 2. Choledocholithiasis is not excluded. 3. Anterior abdominal wall hernia without signs of incarceration or obstructio n. Caprini VTE Risk Assessment Caprini VTE Risk Assessment: Mod/High Risk (score >= 2) Caprini Risk Assessment Model Point Value = 1 Point Value = 2 Point Value = 3 Point Value = 5 Age 41-60 Minor surgery BMI > 25 kg/m2 Swollen legs Varicose veins or History of unexplained or recurrent spontaneous Oral contraceptives or hormone replacement Sepsis (< 1 month) Serious lung disease, including pneumonia (< 1 month) Abnormal pulmonary function Acute myocardial infarction Congestive heart failure (< 1 month) History of inflammatory bowel disease Medical patient at bed rest Age 61-74 Arthroscopic surgery Major open surgery (> 45 min) Laparoscopic surgery (> 45 min) Malignancy Confined to bed (> 72 hours) Immobilizing plaster cast Central venous access Age >= 75 History of VTE Family history of VTE Factor V Leiden Prothrombin [id number] Lupus anticoagulant Anticardiolipin antibodies Elevated serum homocysteine Heparin-induced thrombocytopenia Other congenital or acquired thrombophilia Stroke (< 1 month) Elective arthroplasty Hip, pelvis, or leg fracture Acute spinal cord injury (< 1 month) Prophylaxis Regimen Total Risk Factor Score Risk Level Prophylaxis Regimen 0-1 Low Early ambulation 2 Moderate Order ONE of the following: *Sequential Compression Device (SCD) *Heparin 5000 units SQ BID 3-4 Higher Order ONE of the following medications: *Heparin 5000 units SQ TID *Enoxaparin/Lovenox 40 mg SQ daily (WT < 150 kg, CrCl > 30 mL/min) *Enoxaparin/Lovenox 30 mg SQ daily (WT < 150 kg, CrCl > 10-29 mL/min) *Enoxaparin/Lovenox 30 mg SQ BID (WT < 150 kg, CrCl > 30 mL/min) AND/OR *Sequential Compression Device (SCD) 5 or more Highest Order ONE of the following medications: *Heparin 5000 units SQ TID (Preferred with Epidurals) *Enoxaparin/Lovenox 40 mg SQ daily (WT < 150 kg, CrCl > 30 mL/min) *Enoxaparin/Lovenox 30 mg SQ daily (WT < 150 kg, CrCl > 10-29 mL/min) *Enoxaparin/Lovenox 30 mg SQ BID (WT < 150 kg, CrCl > 30 mL/min) AND *Sequential Compression Device (SCD) Assessment and Plan Problem List: (1) Cholecystitis ICD Code: K81.9 - Cholecystitis, unspecified Assessment and Plan Ms. Reyna is a 42-year-old female with a history of leukemia, breast cancer, asthma, perforated colon status post colostomy who presents to the emergency department due to right upper quadrant abdominal pain. CT abd/pelvis indicates possible cholecystitis. General surgery was consulted by ED. Probable Acute cholecystitis Diarrhea -Patient is allergic to PCN (anaphylactic rxn). Will keep her on Levaquin 500mg and Flagyl 500mg TID both IV. -General surgery consulted. -Diarrhea is not persistent. However, C. Diff PCR pending. Hypokalemia Hypocalcemia Hypomagnesemia - K 2.9, Ca 7.4 corrected, Mg 1.4 - Pt received K and Ca replacement in the ED. - Will give 4 g of IV Magnesium sulfate History of childhood leukemia History of Left breast cancer History of Perforated colon Basal cell carcinoma -Follows up at [facility]. Full code. SCDs. Physician Certification 2 Midnight Certification Type: Admission for Inpatient Services Order for Inpatient Services The services are ordered in accordance with Medicare regulations or non- Medicare payer requirements, as applicable. In the case of services not specified as inpatient-only, they are appropriately provided as inpatient services in accordance with the 2-midnight benchmark. Estimated LOS (days): 2 days is the estimated time the patient will need to remain in the hospital, assuming treatment plan goals are met and no additional complications. Post-Hospital Plan: Home Fawn Azar DO August 17, 2017 12:55 am
[2017-08-17] MEDS ORDERED: metroNIDAZOLE 500 MG INJ 100 ML IV SCH (01:00)
[2017-08-17] MEDS: SODIUM CHLOR 0.9% 1000 ML INJ 1,000 ML IV SCH ×3 (02:15→20:45)
[2017-08-17] MEDS: MAGNESIUM SULFATE 1 GM PREMIX 100 ML IV SCH ×4 (02:16→10:51)
[2017-08-17] MEDS: MORPHINE SULFATE 4 MG/ML INJ IV PUSH PRN ×2 (02:33→14:16)
[2017-08-17] MEDS: LEVOFLOXACIN 500 MG PREMIX INJ 100 ML IV SCH (02:39)
[2017-08-17 06:54] LABS: BICARBONATE 27.1 MEQ/L (21.0-32.0); CALCIUM 8.7 MG/DL (8.5-10.1); CREATININE 0.53 MG/DL (0.50-1.00)
[2017-08-17] MEDS ORDERED: SODIUM CHLORID 0.9% 500 ML IV PRN ×2 (07:30→08:00)
[2017-08-17] MEDS ORDERED: POVIDONE IODINE 5% (ANTISEPSIS KIT) 4 APPLICATIONS EACH NARE PRN ×2 (07:30→08:00)
[2017-08-17] MEDS ORDERED: METOPROLOL TARTRATE 25 MG TAB PO PRN ×2 (07:30→08:00)
[2017-08-17] MEDS ORDERED: LACTATED RINGER'S 1000 ML IV PRN ×2 (07:30→08:00)
[2017-08-17] MEDS ORDERED: INSULIN HUMAN REGULAR 1,000 UNITS/10 ML VIAL SQ PRN (07:30)
[2017-08-17] MEDS ORDERED: CHLORHEXIDINE GLUCONATE 2 % 1 PACK (2 CLOTHS) TOPICAL PRN ×2 (07:30→08:00)
[2017-08-17] MEDS: SODIUM CHLORIDE 0.9% FLUSH 10 ML FLUSH IV FLUSH SCH ×2 (09:00→20:46)
[2017-08-17 09:04] LABS: AUTOMATED NEUTROPHIL # 4.2 TH/MM3 (1.8-7.7); BASOPHIL % 0.3 % (0.0-2.0); EOSINOPHIL # 0.3 TH/MM3 (0-0.4); EOSINOPHIL % 4.9 % (0.0-4.0); HEMATOCRIT 37.2 % (35.0-46.0); HEMOGLOBIN 12.2 GM/DL (11.6-15.3); LYMPH % 11.8 % (9.0-44.0); LYMPHOCYTE # 0.6 TH/MM3 (1.0-4.8); MEAN CELL VOLUME 85.6 FL (80.0-100.0); MEAN CORPUSCULAR HEMOGLOBIN 28.1 PG (27.0-34.0); MEAN CORPUSCULAR HGB CONC 32.8 % (32.0-36.0); MEAN PLATELET VOLUME 9.8 FL (7.0-11.0); MONO % 5.1 % (0.0-8.0); MONOCYTE # 0.3 TH/MM3 (0-0.9); NEUT % 77.9 % (16.0-70.0); PLATELET COUNT 215 TH/MM3 (150-450); RED BLOOD COUNT 4.34 MIL/MM3 (4.00-5.30); RED CELL DISTRIBUTION WIDTH 15.1 % (11.6-17.2); WHITE BLOOD COUNT 5.4 TH/MM3 (4.0-11.0)
[2017-08-17] MEDS: metroNIDAZOLE 500 MG INJ 100 ML IV SCH ×2 (09:14→16:35)
[2017-08-17] MEDS ORDERED: ALBUTEROL SULFATE 90 MCG/ACT HFA 8 GM INHALER INH PRN (11:00)
[2017-08-17] MEDS ORDERED: RESP: ALBUTEROL 2.5 MG/3 ML NEB (PRN) NEB (11:00)
--- NOTE | 2017-08-17 11:53 | HHI.PR ---
Subjective Remarks Currently taking chemo and following up with Dr. Renee. She states her abdominal pain has improved overnight. No significant nausea or vomiting. No fevers or chills. Objective Vitals Vital Signs Date Time Temp Pulse Resp B/P (MAP) Pulse Ox O2 Delivery O2 Flow Rate FiO2 08/17/17 10:34 98 21 08/17/17 08:00 97.2 80 18 124/59 (80) 96 08/17/17 04:00 97.3 70 17 125/65 (85) 97 08/17/17 01:30 08/17/17 00:15 53 16 144/65 (91) 98 Room Air 08/16/17 23:21 55 14 116/76 (89) 98 Room Air 08/16/17 21:05 14 97 Room Air 08/16/17 20:55 83 16 132/62 (85) 98 Room Air 08/16/17 20:39 97.7 135 18 150/71 (97) 99 I/O 08/16/17 08/16/17 08/16/17 08/17/17 08/17/17 08/17/17 07:00 15:00 23:00 07:00 15:00 23:00 Intake Total 1050 ml Balance 1050 ml Intake Oral 300 ml IV Total 750 ml # Voids 2 Result Diagram: 08/17/17 0803 08/17/17 05 Other Results Microbiology Date/Time Source Procedure Growth Status 08/17/17 00:05 Urine Random Urine Urine Culture Pending Received Objective Remarks GENERAL: This is a well-nourished, well-developed patient, in no apparent distress. CARDIOVASCULAR: Regular rate and rhythm RESPIRATORY: Clear to auscultation. Breath sounds equal bilaterally. No wheezes , rales, or rhonchi. GASTROINTESTINAL: Abdomen soft, mild right upper quadrant tenderness, nondistended, normoactive bowel sounds MUSCULOSKELETAL: Extremities without clubbing, cyanosis, or edema. NEURO: Alert & Oriented x4 to person, place, time, situation. Moves all ext x4 A/P Problem List: (1) Cholecystitis ICD Code: K81.9 - Cholecystitis, unspecified Status: Acute Assessment and Plan Ms. Reyna is a 42-year-old female with a history of leukemia, breast cancer, asthma, perforated colon status post colostomy who presents to the emergency department due to right upper quadrant abdominal pain. CT abd/pelvis indicates possible cholecystitis. General surgery was consulted by ED. Suspect probable Acute cholecystitis Diarrhea -Patient is allergic to PCN (anaphylactic rxn). Will keep her on Levaquin 500mg and Flagyl 500mg TID both IV. -General surgery consulted and appreciate recommendation at this time will continue with antibiotics and nonsurgical conservative treatment due to patient being on chemotherapy. Restart diet and advance as tolerated.. -Diarrhea is not persistent. However, C. Diff PCR pending. Hypokalemia replete Hypocalcemia replete Hypomagnesemia supplement History of Left breast cancer Basal cell carcinoma - -on vismodegib - f/u with oncology -Follows up at [facility]. Full code. SCDs. Discharge Planning Home when medically stable Madyson Sidhu MD August 17, 2017 11:53
--- NOTE | 2017-08-17 12:37 | RADRPT ---
EXAM DATE: 08/17/2017 12:21 PM EDT AGE/SEX: 42 years / Female INDICATIONS: Right upper quadrant pain. CLINICAL DATA: This is the patient's initial encounter. Patient reports that signs and/or symptoms h ave been present for 1 week and indicates a pain score of 2/10. MEDICAL/SURGICAL HISTORY: Hypertension. Chronic obstructive pulmonary disease. Gastroesophageal r eflux disease. Thyroid cancer. Glasses. Tachycardia. Asthma. Perforated colon. Diverticulitis. Left breast cancer. Kidney stones. Urinary tract infection. Anxiety. Osteoporosis. Anemia. Skin cancer. T hyroidectomy. section. Bilateral cataract surgery. Lung biopsy. Colostomy. Lumpectomy. Kelley ate septum repair. COMPARISON: No prior exams available for comparison MEASUREMENTS (cm x cm x cm): Liver:__ 14.5 cm length Common Bile Duct:__ 8mm FINDINGS: Liver: Normal echotexture without focal lesion or ductal dilatation. Portal Vein: Hepatopedal flow seen in portal vein. Common Duct: No intraluminal mass or stone visualized. Gallbladder: Multiple gallstones present in the gallbladder. Pancreas: The visualized portions are within normal limits Right Kidney: No mass or hydronephrosis Other: None. CONCLUSION: 1. Multiple gallstones in the gallbladder. No biliary ductal dilatation. No free fluid. Electronically signed by: Doug Bell MD 08/17/2017 12:36 PM EDT
[2017-08-17] MEDS ORDERED: CYCLOBENZAPRINE HCL 10 MG TAB PO SCH (13:00)
--- NOTE | 2017-08-17 20:33 | MB ---
cc: Nando Smith MD, Mark W MD DATE: 08/17/2017 REASON FOR CONSULTATION: Cholecystitis. HISTORY OF PRESENT ILLNESS: Jaye is a very pleasant 42-year-old female with an extremely complicated medical history who presented to the emergency department last evening with a several hour history of right upper quadrant abdominal pain. She states that the pain began earlier in the day when she was at her daughter's dance contest. The pain was mainly in the right upper quadrant. She reports pain persisted and she elected to come into the emergency room for evaluation. She has a colostomy from a perforated colon, which apparently was a spontaneous event when she was hospitalized in the past. She states no real change in her colostomy output. She reports no fevers or chills. The patient had associated nausea, but no emesis. She is currently undergoing chemotherapy for a basal cell carcinoma on her scalp adjacent to her previously placed central nervous system port. As stated, she has an extremely complex medical history including leukemia as an infant requiring an Ommaya reservoir placement. She has also had breast cancer. She has also had T-cell lymphoma. He is currently undergoing active chemotherapy for what appears to be a basal cell in her scalp adjacent to her Ommaya reservoir. She has also had thyroid cancer. The patient was admitted overnight to the medical service for observation for multiple electrolyte abnormalities, pain and a urinary tract infection. She states this morning her pain is much improved. She is hungry and would like something to eat. PAST MEDICAL HISTORY: Includes leukemia, lymphoma, skin cancer, left breast cancer, thyroid cancer, spontaneous perforation of the colon. PAST SURGICAL HISTORY: She has an Ommaya which was placed as an and she was told to leave it in due to its central nervous system location. She has an Vlnjgg-D-[id number] in the right subclavian area. She has had a lung biopsy. She has had a thyroidectomy. She has had a colostomy. She has had a left breast lumpectomy x4. MEDICATIONS: Her medication list is extensive. Please see the chart. She is on active chemotherapy, currently under the care of Dr. Shreyas Renee and at the [facility] [place]. ALLERGIES: She has extensive allergies. Please see the list. SOCIAL HISTORY: She lives here locally with her family. She does not smoke. She rarely drinks alcohol. REVIEW OF SYSTEMS: Please see HPI. PHYSICAL EXAMINATION: VITAL SIGNS: Temperature 97, pulse is 80, blood pressure is 120/60, respiratory rate 20 GENERAL: This is a chronically ill-appearing, thin white female, watching television in her room in no apparent distress. HEENT: Sclerae are white. Oropharynx is clear and moist. She has an Ommaya on the right parietal region. NECK: Supple. No masses. LUNGS: Clear to auscultation bilaterally. HEART: S1, S2. No murmur. She has an [id number]-T-Crhg in the right subclavian area. ABDOMEN: Soft. She has a midline incision with a colostomy in the left lower quadrant. She has no rebound or guarding. Negative Paz sign. EXTREMITIES: Free range of motion x4. NEUROLOGIC: Alert and oriented x3. LABORATORY DATA: White blood cell count is 8, hemoglobin 12, platelet count is 287. Electrolytes were abnormal on admission with s hypokalemia at 2.9, hypocalcemia at 6.8. Her LFTs were normal. Her lipase was normal. IMAGING STUDIES: CT scan of the abdomen and pelvis does demonstrate multiple gallstones and a thickened gallbladder. There is no evidence of pericholecystic fluid or edema of the liver. Common bile duct is slightly dilated. IMPRESSION: Likely biliary colic. PLAN: At this point, the patient is clinically improving. I discussed possible surgical intervention with her. I called her oncologist, Dr. Shreyas Renee, who states she is an extremely high risk for any surgical procedure due to her complex medical history and previous complications. Apparently, during her most recent surgical procedure she developed a severe asthmatic reaction and had to stay intubated for an extended period of time. She is currently undergoing active chemotherapy for her basal cell and Dr. Renee is unsure about the operative complications that could be associated with this medication. He is going to attempt to obtain additional information about it. He is in agreement that if she can be managed medically that she would best be served by avoiding surgery at this time. I had a long discussion with the patient at the bedside regarding this. The patient feels better and is agreeable with nonoperative management. I explained to her that once she completed chemotherapy, we could consider an elective cholecystectomy to prevent future episodes. We also discussed the possibility of reversing her colostomy. She does have a small parastomal hernia, but she is currently asymptomatic. She states her colon perforation was apparently spontaneous due to medical comorbidities and steroid use for her asthma. We will recheck her liver function tests. We will also get an ultrasound today to evaluate for any gallbladder wall thickening, pericholecystic fluid or ductal dilatation. We are going to go ahead and resume the patient's diet and observe her. We will recheck her in the morning. Nando MD MAHSA Conley/ , 07:51 PM , 08:31 PM
[2017-08-17] MEDS: FLUTICASONE PROPIONATE 50 MCG/ACT 16 GM NASAL SPRAY EACH NARE SCH (20:47)
[2017-08-17] MEDS: PANTOPRAZOLE SOD 40 MG DELAYED RELEASE TAB PO SCH (20:48)
[2017-08-17] MEDS: MONTELUKAST SODIUM 10 MG TAB PO SCH (20:48)
[2017-08-17] MEDS: CYCLOBENZAPRINE HCL 10 MG TAB PO PRN (20:50)
[2017-08-17] MEDS ORDERED: DILTIAZEM 60 MG PO SCH (21:00)
[2017-08-17] MEDS ORDERED: NON-FORMULARY DRUG (Fluticasone Nasal Spray (Flonase Nasal Spray) 50 MCG) EACH NARE SCH (21:00)
[2017-08-18] VITALS (8 sets, daily range): BP systolic 97–112; BP diastolic 54–59; PULSE 100–128; RESP 18–19; TEMP 97.8–99.7; O2SAT 94–99
[2017-08-18] MEDS: metroNIDAZOLE 500 MG INJ 100 ML IV SCH ×3 (00:48→17:29)
[2017-08-18] MEDS: LEVOFLOXACIN 500 MG PREMIX INJ 100 ML IV SCH (02:06)
[2017-08-18] MEDS: LEVOTHYROXINE PO SCH (05:47)
[2017-08-18] MEDS ORDERED: ONDANSETRON HCL 4 MG/2 ML VIAL IV PUSH PRN (06:30)
[2017-08-18 08:36] LABS: ALBUMIN 2.9 GM/DL (3.4-5.0); DIRECT BILIRUBIN ADULT 0.1 MG/DL (0.0-0.2)
[2017-08-18 08:37] LABS: INDIRECT BILIRUBIN 0.4 MG/DL (0.0-0.8); TOTAL BILIRUBIN ADULT 0.5 MG/DL (0.2-1.0); TOTAL PROTEIN 6.1 GM/DL (6.4-8.2)
[2017-08-18] MEDS: PANTOPRAZOLE SOD 40 MG DELAYED RELEASE TAB PO SCH ×2 (08:57→20:38)
[2017-08-18] MEDS: FLUTICASONE PROPIONATE 50 MCG/ACT 16 GM NASAL SPRAY EACH NARE SCH ×2 (08:58→20:39)
[2017-08-18] MEDS: FLUTICASONE 200 MCG/VILANTEROL 25 MCG INHALER INH SCH (08:59)
[2017-08-18] MEDS ORDERED: DILTIAZEM 60 MG PO SCH ×2 (09:00)
[2017-08-18] MEDS: SODIUM CHLORIDE 0.9% FLUSH 10 ML FLUSH IV FLUSH SCH ×2 (09:14→20:39)
--- NOTE | 2017-08-18 09:50 | HHI.PR ---
Subjective Remarks Abdominal pain better overnight. Is tolerating some soft diet. At times still with some pain with food intake. No fevers or chills. Objective Vitals Vital Signs Date Time Temp Pulse Resp B/P (MAP) Pulse Ox O2 Delivery O2 Flow Rate FiO2 08/18/17 08:00 97.9 103 18 98/57 (71) 98 08/18/17 04:30 97.8 100 18 102/54 (70) 98 08/18/17 00:29 98.3 116 18 108/57 (74) 97 08/17/17 20:30 97 08/17/17 20:05 98.3 99 18 111/59 (76) 98 08/17/17 16:00 97.9 98 17 101/58 (72) 99 08/17/17 12:00 97.5 96 17 107/59 (75) 98 08/17/17 10:34 98 21 I/O 08/17/17 08/17/17 08/17/17 08/18/17 08/18/17 08/18/17 07:00 15:00 23:00 07:00 15:00 23:00 Intake Total 1050 ml 880 ml 540 ml Balance 1050 ml 880 ml 540 ml Intake Oral 300 ml 340 ml IV Total 750 ml 880 ml 200 ml # Voids 2 10 2 Result Diagram: 08/17/17 0803 08/17/17 05 Other Results Item Value Date Time Aspartate Amino Transf (AST/SGOT) 13 U/L L 08/18/17 06 Alanine Aminotransferase (ALT/SGPT) 14 U/L 08/18/17 0605 Total Protein 6.1 GM/DL L 08/18/17 0605 Albumin 2.9 GM/DL L 08/18/17 0605 Objective Remarks GENERAL: This is a well-nourished, well-developed patient, in no apparent distress. CARDIOVASCULAR: Regular rate and rhythm RESPIRATORY: Clear to auscultation. Breath sounds equal bilaterally. No wheezes , rales, or rhonchi. GASTROINTESTINAL: Abdomen soft, mild right upper quadrant tenderness, no rebound , no guarding, nondistended, normoactive bowel sounds; colostomy in place MUSCULOSKELETAL: Extremities without clubbing, cyanosis, or edema. NEURO: Alert & Oriented x4 to person, place, time, situation. Moves all ext x4 A/P Problem List: (1) Cholecystitis ICD Code: K81.9 - Cholecystitis, unspecified Status: Acute Assessment and Plan Ms. Reyna is a 42-year-old female with a history of leukemia, breast cancer, asthma, perforated colon status post colostomy who presents to the emergency department due to right upper quadrant abdominal pain. CT abd/pelvis indicates possible cholecystitis. General surgery was consulted by ED. Suspect Acute cholecystitis clinically improving Diarrhea -clinically improving and resolving -Continue on IV Levaquin 500mg and Flagyl 500mg TID; transition to PO in am -General surgery consulted and appreciate recommendation at this time will continue with antibiotics and nonsurgical conservative treatment due to patient being on chemotherapy and previous high risk complication for surgical procedures. Restart diet and advance as tolerated.. Hypokalemia replete Hypocalcemia replete Hypomagnesemia supplement History of Left breast cancer Basal cell carcinoma - -on vismodegib - f/u with oncology -Follows up at [facility]. Full code. SCDs. Discharge Planning Home in am if continues to clinically improve Madyson Sidhu MD August 18, 2017 09:50
--- NOTE | 2017-08-18 11:56 | HHI.PR ---
Subjective Subjective Notes feels much better, tolerating po, has an itchy rash all over. Objective Vitals/I&O Vital Signs Date Time Temp Pulse Resp B/P (MAP) Pulse Ox O2 Delivery O2 Flow Rate FiO2 08/18/17 10:03 99 21 08/18/17 08:00 97.9 103 18 98/57 (71) 08/17/17 00:15 Room Air Labs Laboratory Tests Test 08/18/17 06:05 Total Bilirubin 0.5 Direct Bilirubin 0.1 Indirect Bilirubin 0.4 Aspartate Amino Transf (AST/SGOT) 13 Alanine Aminotransferase (ALT/SGPT) 14 Alkaline Phosphatase 67 Total Protein 6.1 Albumin 2.9 Date/Time Source Procedure Growth Status 08/17/17 00:05 Urine Random Urine Urine Culture Pending Received Abdomen: Non-distended, Non-tender, BS normal A/P Assessment and Plan Acute cholecystitis/Biliary Colic Clinically improved Spoke with Dr. Renee, he advised to avoid surgery if possible. Continue medical management. Benadryl for rash? ABX? Contact dermatitis? Nando Smith MD August 18, 2017 11:56
[2017-08-18] MEDS ORDERED: diphenhydrAMINE HCL 50 MG/ML VIAL IV PUSH ONE (14:00)
[2017-08-18] MEDS: diphenhydrAMINE HCL 50 MG/ML VIAL IV PUSH PRN (20:37)
[2017-08-18] MEDS: CYCLOBENZAPRINE HCL 10 MG TAB PO PRN (20:38)
[2017-08-18] MEDS: MONTELUKAST SODIUM 10 MG TAB PO SCH (20:38)
[2017-08-18] MEDS: ACETAMINOPHEN 325 MG TAB PO PRN (20:38)
[2017-08-19] VITALS (10 sets, daily range): BP systolic 97–114; BP diastolic 55–69; PULSE 88–130; RESP 16–19; TEMP 98.2–102.4; O2SAT 96–100
[2017-08-19] MEDS: metroNIDAZOLE 500 MG INJ 100 ML IV SCH (00:31)
[2017-08-19] MEDS: diphenhydrAMINE HCL 50 MG/ML VIAL IV PUSH PRN ×2 (00:35→05:46)
[2017-08-19] MEDS: LEVOFLOXACIN 500 MG PREMIX INJ 100 ML IV SCH (01:30)
[2017-08-19] MEDS: LEVOTHYROXINE PO SCH (05:48)
[2017-08-19] MEDS: FLUTICASONE 200 MCG/VILANTEROL 25 MCG INHALER INH SCH (08:32)
[2017-08-19] MEDS: PANTOPRAZOLE SOD 40 MG DELAYED RELEASE TAB PO SCH ×2 (08:33→20:14)
[2017-08-19] MEDS: ACETAMINOPHEN 325 MG TAB PO PRN ×2 (08:37→17:30)
--- NOTE | 2017-08-19 08:37 | HHI.PR ---
Subjective Remarks Follow-up visit possible acute cholecystitis, nausea, vomiting. Patient seen and examined today. Reports nausea and vomiting overnight. States unable to tolerate p.o. diet last night. States at home she takes 8 mg of Zofran around- the-clock she is being treated by oncology. Denies any fevers, chills, shortness of breath or dyspnea, denies dysuria. Objective Vitals Vital Signs Date Time Temp Pulse Resp B/P (MAP) Pulse Ox O2 Delivery O2 Flow Rate FiO2 08/19/17 03:50 99.5 118 18 102/69 (80) 98 08/19/17 00:40 99.7 116 18 100/55 (70) 96 08/18/17 19:40 99.7 128 18 112/56 (74) 95 08/18/17 17:18 98 21 08/18/17 16:00 98.3 117 18 97/56 (70) 98 08/18/17 12:00 97.8 115 19 99/59 (72) 94 08/18/17 10:03 99 21 I/O 08/18/17 08/18/17 08/18/17 08/19/17 08/19/17 08/19/17 07:00 15:00 23:00 07:00 15:00 23:00 Intake Total 540 ml 100 ml 1030 ml 680 ml Balance 540 ml 100 ml 1030 ml 680 ml Intake Oral 340 ml 930 ml 480 ml IV Total 200 ml 100 ml 100 ml 200 ml # Voids 2 6 4 # Bowel Movements 1 Result Diagram: 08/17/17 0803 08/17/17 0522 Imaging Last Impressions Gall Bladder Ultrasound 08/17/17 0000 Signed Impressions: CONCLUSION: 1. Multiple gallstones in the gallbladder. No biliary ductal dilatation. No fr ee fluid. Abdomen/Pelvis CT 08/16/172052 Signed Impressions: CONCLUSION: 1. Cholelithiasis and possibility of acute cholecystitis should be entertained in the appropriate clinical setting. 2. Choledocholithiasis is not excluded. 3. Anterior abdominal wall hernia without signs of incarceration or obstructio n. Objective Remarks GENERAL: This is a well-nourished, well-developed patient, in no apparent distress. SKIN: Warm and dry. Pale HEENT: Normocephalic. Pupils equal round and reactive. Nose without bleeding. Airway patent. NECK: Trachea midline. CARDIOVASCULAR: Tachycardia without murmurs, gallops, or rubs. RESPIRATORY: Clear to auscultation. Breath sounds equal bilaterally. No wheezes , rales, or rhonchi. GASTROINTESTINAL: Abdomen soft, nondistended. Bowel Sounds normoactive x4. Mild tenderness to palpation mid epigastric region. MUSCULOSKELETAL: Extremities without clubbing, cyanosis, or edema. NEUROLOGICAL: Awake and alert. Oriented to time, place, person. No focal neuro deficit. Moves all extremities. Normal speech. A/P Problem List: (1) Cholecystitis ICD Code: K81.9 - Cholecystitis, unspecified Status: Acute Assessment and Plan Ms. Reyna is a 42-year-old female with a history of leukemia, breast cancer, asthma, perforated colon status post colostomy who presents to the emergency department due to right upper quadrant abdominal pain. CT abd/pelvis indicates possible cholecystitis. General surgery was consulted by ED. Suspect Acute cholecystitis clinically improving Diarrhea -clinically improving and resolving -Switch Levaquin 500 mg p.o., Flagyl 500 mg p.o. 3 times daily -General surgery consulted and appreciate recommendation at this time will continue with antibiotics and nonsurgical conservative treatment due to patient being on chemotherapy and previous high risk complication for surgical procedures. Restart diet and advance as tolerated. -Zofran 8 mg every 8 hours, Compazine as needed -Continue to monitor patient. -IV fluids for gentle hydration. Since patient is not tolerating p.o. diet. Provide Ensure. Hypokalemia replete Hypocalcemia replete Hypomagnesemia supplement History of Left breast cancer Basal cell carcinoma - -on vismodegib - f/u with oncology -Follows up at [facility]. Full code. SCDs. Discharge Planning Plan to DC home when clinically improved. Continues to have nausea, vomiting. Santos Atkinson August 19, 2017 08:37
[2017-08-19] MEDS ORDERED: METR-1 PO (08:58)
[2017-08-19] MEDS ORDERED: LEVA500T33 PO (08:58)
[2017-08-19] MEDS: DILTIAZEM 60 MG PO SCH (09:00)
[2017-08-19] MEDS: FLUTICASONE PROPIONATE 50 MCG/ACT 16 GM NASAL SPRAY EACH NARE SCH ×2 (09:00→20:14)
[2017-08-19] MEDS: PROCHLORPERAZINE INJ 10 MG/2 ML VIAL IV PUSH PRN ×2 (10:05→15:00)
[2017-08-19] MEDS: SODIUM CHLORIDE 0.9% FLUSH 10 ML FLUSH IV FLUSH SCH ×2 (10:05→20:14)
[2017-08-19] MEDS: SODIUM CHLOR 0.9% 1000 ML INJ 1,000 ML IV SCH ×2 (10:05→20:15)
--- NOTE | 2017-08-19 12:44 | HHI.PR ---
cc: Ayde Smith MD Subjective Subjective Notes Nauseous--- David HOSIERY REPAIRER restarting her home dose of Zofran of 8mg Objective Vitals/I&O Vital Signs Date Time Temp Pulse Resp B/P (MAP) Pulse Ox O2 Delivery O2 Flow Rate FiO2 08/19/17 08:00 98.3 130 19 101/59 (73) 98 08/18/17 17:18 21 08/17/17 00:15 Room Air Labs Date/Time Source Procedure Growth Status 08/17/17 00:05 Urine Random Urine Urine Culture - Final 50-100,000 CFU/ML MIXED GRAM POSITIVE... Complete Cardiovascular: Regular Lungs: Clear Abdomen: Non-distended, Non-tender Extremities: No edema A/P Assessment and Plan 42 year old female with acute cholecystitis/Biliary Colic -Abdominal exam improved -Restart home dose of Zofran -Dr. Smith spoke with Dr. Renee, he advised to avoid surgery if possible. -Continue medical management. -Rx for Levaquin/Flagyl on chart I CERTIFY AND ATTEST THAT I PERSONALLY EXAMINED THE PATIENT IN HER ROOM. THE HOSIERY REPAIRER DOCUMENTED OUR VISIT AND ENTERED ORDERS IN THE EMR UNDER MY SUPERVISION. WOULD NOT RECOMMEND SURGERY DURING ACTIVE CHEMOTHERAPY UNLESS ABSOLUTELY NECESSARY. PT UNDERSTANDS AND AGREES. AYDE SMITH MD [facility] Shanita Reinoso HOSIERY REPAIRER/Math Professor HOSIERY REPAIRER August 19, 2017 12:44 Ayde Smith MD Aug 24, 2017 10:50
[2017-08-19] MEDS ORDERED: metroNIDAZOLE 500 MG TAB PO SCH (14:00)
[2017-08-19] MEDS: metroNIDAZOLE 500 MG TAB PO SCH (15:00)
[2017-08-19] MEDS: ONDANSETRON ODT 4 MG TAB PO SCH ×2 (15:00→20:14)
[2017-08-19] MEDS: ENOXAPARIN SODIUM 40 MG/0.4 ML SYRINGE SQ SCH (17:30)
--- NOTE | 2017-08-19 19:30 | RADRPT ---
EXAM DATE: 08/19/2017 7:27 PM EDT AGE/SEX: 42 years / Female INDICATIONS: Fever since this morning. CLINICAL DATA: This is the patient's subsequent encounter. Patient reports that signs and symptoms h ave been present for 4 - 6 days and indicates a pain score of 0/10. MEDICAL/SURGICAL HISTORY: Hypertension. Chronic obstructive pulmonary disease. Gastroesophagea l reflux disease. Thyroid cancer. Tachycardia. Asthma. Perforated colon. Diverticulitis. Left breast cancer. Kidney stones. Osteoporosis. Anemia. Skin cancer. Thyroidectomy. section. Bilater al cataract surgery. Lung biopsy. Colostomy. Lumpectomy. Deviate septum repair. COMPARISON: Chest x-ray 10/02/2014. FINDINGS: A single AP view of the chest demonstrates the lungs to be symmetrically aerated without evidence of mass, infiltrate or effusion. The cardiomediastinal contours are unremarkable. Osseous structures a re intact. A Port-A-Cath overlies the right chest. CONCLUSION: No acute cardiopulmonary disease. Electronically signed by: Lasha Gill MD 08/19/2017 7:29 PM EDT
[2017-08-19] MEDS: MONTELUKAST SODIUM 10 MG TAB PO SCH (20:14)
[2017-08-19 20:20] LABS: BACTERIA, URINE RARE /hpf; BILIRUBIN, URINE NEG (NEG); BLOOD, URINE NEG (NEG); GLUCOSE,URINE NEG (NEG); KETONE, URINE 10 mg/dL (NEG); MUCUS URINE FEW /lpf (OCC); NITRITE,URINE NEG (NEG); PH, URINE 5.5 (5.0-8.5); SQUAMOUS EPITHELIAL CELL URINE 4 /hpf (0-5); URINE COLOR YELLOW (YELLW/STRAW); URINE LEUKOCYTE ESTERASE LARGE (NEG)
[2017-08-19 21:15] LABS: HEMATOCRIT 43.1 % (35.0-46.0); MEAN CELL VOLUME 85.1 FL (80.0-100.0); MEAN CORPUSCULAR HEMOGLOBIN 27.6 PG (27.0-34.0); MEAN CORPUSCULAR HGB CONC 32.4 % (32.0-36.0); MEAN PLATELET VOLUME 9.7 FL (7.0-11.0); PLATELET COUNT 180 TH/MM3 (150-450); RED BLOOD COUNT 5.06 MIL/MM3 (4.00-5.30); RED CELL DISTRIBUTION WIDTH 15.8 % (11.6-17.2); WHITE BLOOD COUNT 22.4 TH/MM3 (4.0-11.0)
[2017-08-19 21:31] LABS: BICARBONATE 19.8 MEQ/L (21.0-32.0); CALCIUM 7.5 MG/DL (8.5-10.1); CREATININE 0.74 MG/DL (0.50-1.00)
[2017-08-20] VITALS (8 sets, daily range): BP systolic 81–103; BP diastolic 51–72; PULSE 76–138; RESP 16–20; TEMP 98.2–99.4; O2SAT 96–100
[2017-08-20] MEDS: metroNIDAZOLE 500 MG TAB PO SCH ×4 (00:06→21:31)
[2017-08-20] MEDS: SODIUM CHLOR 0.9% 1000 ML INJ 1,000 ML IV SCH ×2 (00:06→20:27)
[2017-08-20] MEDS: LEVOFLOXACIN 500 MG TAB PO SCH (00:06)
[2017-08-20] MEDS: PROCHLORPERAZINE INJ 10 MG/2 ML VIAL IV PUSH PRN (02:53)
[2017-08-20] MEDS ORDERED: SODIUM CHLOR 0.9% 1000 ML INJ 1,000 ML IV ONE ×2 (04:00→20:15)
[2017-08-20] MEDS: LEVOTHYROXINE PO SCH (05:23)
[2017-08-20] MEDS: ONDANSETRON ODT 4 MG TAB PO SCH ×3 (05:23→20:26)
[2017-08-20] MEDS: FLUTICASONE PROPIONATE 50 MCG/ACT 16 GM NASAL SPRAY EACH NARE SCH ×2 (08:41→20:27)
[2017-08-20] MEDS: FLUTICASONE 200 MCG/VILANTEROL 25 MCG INHALER INH SCH (08:44)
[2017-08-20] MEDS: PANTOPRAZOLE SOD 40 MG DELAYED RELEASE TAB PO SCH ×2 (08:46→20:26)
[2017-08-20] MEDS: DILTIAZEM 60 MG PO SCH (08:51)
[2017-08-20] MEDS: SODIUM CHLORIDE 0.9% FLUSH 10 ML FLUSH IV FLUSH SCH ×2 (08:53→17:41)
[2017-08-20] MEDS ORDERED: PILL SPLITTER OTHER PRN (09:45)
--- NOTE | 2017-08-20 11:14 | HHI.DS ---
Discharge Summary Admission Date August 17, 2017 at 00:36 Discharge Date: Aug 20, 2017 Admitting Diagnosis Abdominal pain, suspected cholecystitis (1) Cholecystitis ICD Code: K81.9 - Cholecystitis, unspecified Status: Acute Procedures None Brief History - From Admission Ms. Reyna is a 42-year-old female with a history of leukemia, breast cancer, asthma, perforated colon status post colostomy who presents to the emergency department due to right upper quadrant abdominal pain. Her pain started on 08/16 in the morning and has progressively gotten worse throughout the day. She denies any fever or chills. She normally has nausea and uses Zofran. She reports some diarrhea as well. No dysuria or hematuria. Denies any chest pain, cough. CBC/BMP: 08/19/17201008/19/172010 Significant Findings Laboratory Tests Test 08/18/17 06:05 08/19/17 19:20 08/19/17 20:11 08/19/17 22:44 Aspartate Amino Transf (AST/SGOT) 13 U/L (15-37) Total Protein 6.1 GM/DL (6.4-8.2) Albumin 2.9 GM/DL (3.4-5.0) Urine Turbidity HAZY (CLEAR) Urine Ketones 10 mg/dL (NEG) Urine Leukocyte Esterase LARGE (NEG) Urine WBC 21 /hpf (0-5) Urine Bacteria RARE /hpf (NONE) Urine Mucus FEW /lpf (OCC) White Blood Count 22.4 TH/MM3 (4.0-11.0) Calcium Level 7.5 MG/DL (8.5-10.1) Sodium Level 135 MEQ/L (136-145) Carbon Dioxide Level 19.8 MEQ/L (21.0-32.0) Estimat Glomerular Filtration Rate 87 ML/MIN (>89) PE at Discharge GENERAL: This is a well-nourished, well-developed patient, in no apparent distress. SKIN: Warm and dry. Pale HEENT: Normocephalic. Pupils equal round and reactive. Nose without bleeding. Airway patent. NECK: Trachea midline. CARDIOVASCULAR: Tachycardia without murmurs, gallops, or rubs. RESPIRATORY: Clear to auscultation. Breath sounds equal bilaterally. No wheezes , rales, or rhonchi. GASTROINTESTINAL: Abdomen soft, nondistended. Bowel Sounds normoactive x4. Mild tenderness to palpation mid epigastric region. MUSCULOSKELETAL: Extremities without clubbing, cyanosis, or edema. NEUROLOGICAL: Awake and alert. Oriented to time, place, person. No focal neuro deficit. Moves all extremities. Normal speech. Hospital Course 42-year-old white female presents to the emergency room with acute cholecystitis was placed on IV Flagyl and Levaquin and seen by general surgery Dr. Smith. Due to the fact that she is on chronic chemotherapy for basal cell carcinoma and has had complications with anesthesia and surgery, non-surgical conservative treatment was recommended with continue IV antibiotics. Her metoprolol was not started upon admission and therefore had some tachycardia during the hospitalization which was improved with IV fluid bolus and restarting metoprolol. Her white blood count did go up and repeat CBC is currently pending. If improved, patient will go home on oral antibiotics with close follow-up with general surgery. Pt Condition on Discharge: Good Discharge Disposition: Discharge Home Discharge Instructions DIET: Follow Instructions for: As Tolerated, No Restrictions Activities you can perform: Regular-No Restrictions Follow up Referrals: Surgical - 08/31/17 with Nando Smith MD Appt set for August 31 at 9:30AM New Medications: Levofloxacin (Levaquin) 500 Mg Tablet 500 MG PO Q24H for Infection for 5 Days, #5 TAB Metronidazole (Flagyl) 500 Mg Tab 500 MG PO Q8H for Infection for 5 Days, #15 TAB Continued Medications: Albuterol 6.7 GM Inh (Proventil Hfa 6.7 GM Inh) 90 Mcg/Act Aer 2 PUFF INH Q6H PRN for SHORTNESS OF BREATH, #1 INHALER 0 Refills Albuterol Neb (Albuterol Neb) 2.5 Mg/3 Ml Neb 2.5 MG NEB Q4HR NEB PRN for SHORTNESS OF BREATH, #60 NEBULE 0 Refills Cyclobenzaprine (Flexeril) 10 Mg Tab 10 MG PO TID for Muscle Spasm, #90 TAB 0 Refills Diltiazem ER 12 HR (Diltiazem ER 12 HR) 60 Mg Caper 60 MG PO DAILY, #60 CAP 0 Refills Epinephrine Inj (Epinephrine Inj) 0.15 Mg/0.3 Ml Inj 0.3 MG IM DIRECTED, #1 INJECTION 0 Refills Fluticasone Nasal Worton (Flonase Nasal Worton) 50 Mcg/Act Worton 50 MCG EACH NARE BID for Allergies, #1 BOTTLE 0 Refills Fluticasone-Vilanterol Inh (Breo Ellipta Inh) 200-25 Mcg/Act Inh 1 PUFF INH DAILY, #1 INHALER 0 Refills Use daily at the same time. Levothyroxine (Tirosint) 13 Mcg Cap 13 MCG DAILY for Thyroid, #30 CAP 0 Refills Metoprolol Tartrate (Metoprolol Tartrate) 25 Mg Tab 12.5 MG PO BID, #60 TAB 0 Refills Montelukast (Singulair) 10 Mg Tab 10 MG PO HS, #30 TAB 0 Refills Ondansetron (Ondansetron) 8 Mg Tab 8 MG PO TID for Nausea/Vomiting, TAB 0 Refills Pantoprazole (Pantoprazole) 40 Mg Tab 40 MG PO BID for Reflux, #30 TAB 0 Refills Vismodegib (Erivedge) 150 Mg Cap Madyson Sidhu MD Aug 20, 2017 11:14
[2017-08-20] MEDS ORDERED: METOPROLOL TARTRATE 25 MG TAB PO ONE (11:15)
[2017-08-20 13:53] LABS: AUTOMATED NEUTROPHIL # 18.6 TH/MM3 (1.8-7.7); BASOPHIL % 0.1 % (0.0-2.0); EOSINOPHIL # 0.8 TH/MM3 (0-0.4); EOSINOPHIL % 4.1 % (0.0-4.0); HEMATOCRIT 39.9 % (35.0-46.0); HEMOGLOBIN 13.1 GM/DL (11.6-15.3); LYMPH % 4.5 % (9.0-44.0); LYMPHOCYTE # 0.9 TH/MM3 (1.0-4.8); MEAN CELL VOLUME 84.3 FL (80.0-100.0); MEAN CORPUSCULAR HEMOGLOBIN 27.7 PG (27.0-34.0); MEAN CORPUSCULAR HGB CONC 32.9 % (32.0-36.0); MEAN PLATELET VOLUME 10.2 FL (7.0-11.0); MONO % 1.4 % (0.0-8.0); MONOCYTE # 0.3 TH/MM3 (0-0.9); NEUT % 89.9 % (16.0-70.0); PLATELET COUNT 180 TH/MM3 (150-450); RED BLOOD COUNT 4.74 MIL/MM3 (4.00-5.30); RED CELL DISTRIBUTION WIDTH 15.9 % (11.6-17.2); WHITE BLOOD COUNT 20.7 TH/MM3 (4.0-11.0)
--- NOTE | 2017-08-20 13:57 | HHI.PR ---
Subjective Remarks Patient reports still with nausea, rash is not itchy. c/o heart palpitations. Home metoprolol was not started on admission. no c/o chest pian or SOB. Objective Vitals Vital Signs Date Time Temp Pulse Resp B/P (MAP) Pulse Ox O2 Delivery O2 Flow Rate FiO2 08/20/17 11:10 21 08/20/17 08:00 99.4 138 19 103/72 (82) 97 08/20/17 05:34 98.7 97 18 101/57 (72) 100 08/20/17 04:00 98.7 138 18 81/52 (62) 98 08/20/17 00:00 98.9 76 16 100/68 (79) 98 08/19/17 21:11 99 21 08/19/17 20:00 98.6 88 18 97/59 (72) 97 08/19/17 18:26 102.4 08/19/17 17:23 101.4 96 16 114/58 (76) 100 08/19/17 15:05 96 08/19/17 14:33 99 21 I/O 08/19/17 08/19/17 08/19/17 08/20/17 08/20/17 08/20/17 06:59 14:59 22:59 06:59 14:59 22:59 Intake Total 680 ml 245 ml 2295 ml Balance 680 ml 245 ml 2295 ml Intake Oral 480 ml 240 ml IV Total 200 ml 245 ml 2055 ml # Voids 4 2 # Bowel Movements 1 0 Result Diagram: 08/19/17201008/19/172010 Objective Remarks GENERAL: This is a well-nourished, well-developed patient, in no apparent distress. CARDIOVASCULAR: irregular rhythmn, tachycardia RESPIRATORY: Clear to auscultation. Breath sounds equal bilaterally. No wheezes , rales, or rhonchi. GASTROINTESTINAL: Abdomen soft, mild right upper quadrant tenderness, no rebound , no guarding, nondistended, normoactive bowel sounds; colostomy in place MUSCULOSKELETAL: Extremities without clubbing, cyanosis, or edema. NEURO: Alert & Oriented x4 to person, place, time, situation. Moves all ext x4 SKIN: multiple fine macular bilateral upper and lower ext and trunk Procedures None A/P Problem List: (1) Cholecystitis ICD Code: K81.9 - Cholecystitis, unspecified Status: Acute Assessment and Plan Ms. Reyna is a 42-year-old female with a history of leukemia, breast cancer, asthma, perforated colon status post colostomy who presents to the emergency department due to right upper quadrant abdominal pain. CT abd/pelvis indicates possible cholecystitis. General surgery was consulted by ED. Suspect Acute cholecystitis clinically improving Diarrhea -clinically improving and resolving -Transitioned to Levaquin 500mg and Flagyl 500mg TID; -General surgery consulted and appreciate recommendation at this time will continue with antibiotics and nonsurgical conservative treatment due to patient being on chemotherapy and previous high risk complication for surgical procedures. Restart diet and advanced as tolerated.. atrial fib with RVR - restart metoprolol for rate control leukocytosis - increase wbc last night with sepsis protocol work-up with hypotension and fever overnight, await blood cultures - repeat wbc pending, consider switching abx if persistently worsens Hypokalemia replete Hypocalcemia replete Hypomagnesemia supplement History of Left breast cancer Basal cell carcinoma - -on vismodegib - f/u with oncology -Follows up at [facility]. contact dermatitis - ? due to detergent from sheet - benadryl 25 mg IV prn Full code. SCDs. hold discharge today Discharge Planning Home in am if continues to clinically improve and wbc trends down with negative blood cultures Madyson Sidhu MD Aug 20, 2017 13:57
[2017-08-20] MEDS: ENOXAPARIN SODIUM 40 MG/0.4 ML SYRINGE SQ SCH (17:31)
[2017-08-20] MEDS: METOPROLOL TARTRATE 25 MG TAB PO SCH ×2 (17:32→20:27)
[2017-08-20] MEDS: diphenhydrAMINE HCL 50 MG/ML VIAL IV PUSH PRN ×2 (17:41→21:31)
[2017-08-20] MEDS: MONTELUKAST SODIUM 10 MG TAB PO SCH (20:26)
[2017-08-21] VITALS (13 sets, daily range): BP systolic 85–133; BP diastolic 49–77; PULSE 68–175; RESP 16–26; TEMP 97.3–98.2; O2SAT 95–100
[2017-08-21] MEDS ORDERED: MIDODRINE 5 MG TAB PO ONE (00:45)
[2017-08-21] MEDS: diphenhydrAMINE HCL 50 MG/ML VIAL IV PUSH PRN ×4 (01:22→21:21)
[2017-08-21] MEDS: LEVOFLOXACIN 500 MG TAB PO SCH (01:22)
[2017-08-21] MEDS: ONDANSETRON ODT 4 MG TAB PO SCH ×3 (05:17→22:24)
[2017-08-21] MEDS: metroNIDAZOLE 500 MG TAB PO SCH ×3 (05:17→22:24)
[2017-08-21] MEDS: LEVOTHYROXINE PO SCH (05:17)
[2017-08-21] MEDS: FLUTICASONE 200 MCG/VILANTEROL 25 MCG INHALER INH SCH (09:00)
[2017-08-21] MEDS: DILTIAZEM 60 MG PO SCH (09:00)
[2017-08-21] MEDS: METOPROLOL TARTRATE 25 MG TAB PO SCH ×2 (09:00→21:00)
[2017-08-21] MEDS: PANTOPRAZOLE SOD 40 MG DELAYED RELEASE TAB PO SCH ×2 (09:17→21:14)
[2017-08-21] MEDS: FLUTICASONE PROPIONATE 50 MCG/ACT 16 GM NASAL SPRAY EACH NARE SCH ×2 (09:19→21:16)
[2017-08-21] MEDS: SODIUM CHLORIDE 0.9% FLUSH 10 ML FLUSH IV FLUSH SCH ×2 (09:19→21:00)
--- NOTE | 2017-08-21 09:31 | HHI.PR ---
Subjective Remarks Follow-up visit acute cholecystitis, SIRS/Sepsis, rash bilateral upper extremity trunk area, lower extremity, history of basal cell carcinoma, cutaneous T-cell lymphoma. Patient seen and examined today. Reports she is doing better. Denies any fevers overnight. Denies abdominal pain, denies nausea, vomiting, diarrhea. Complains rash throughout her bilateral upper extremity trunk area, abdomen, bilateral lower extremity suspects it is getting worse than better. Denies pain and discomfort. Denies SOB/ dyspnea. Denies chest pain, palpitations, headaches, dizziness. Denies dysuria. Objective Vitals Vital Signs Date Time Temp Pulse Resp B/P (MAP) Pulse Ox O2 Delivery O2 Flow Rate FiO2 08/21/17 09:09 08/21/17 08:00 97.9 86 17 85/49 (61) 99 08/21/17 04:00 82 08/21/17 04:00 97.7 83 18 87/51 (63) 100 08/21/17 00:00 96 08/21/17 00:00 97.9 88 18 88/53 (65) 95 08/20/17 20:44 87 08/20/17 20:00 98.2 96 18 81/51 (61) 99 08/20/17 17:50 21 08/20/17 16:00 98.3 110 16 98/52 (67) 96 08/20/17 12:00 98.3 130 20 99/58 (72) 99 08/20/17 11:10 21 I/O 08/20/17 08/20/17 08/20/17 08/21/17 08/21/17 08/21/17 07:00 15:00 23:00 07:00 15:00 23:00 Intake Total 2295 ml 1000 ml 940 ml 50 ml Balance 2295 ml 1000 ml 940 ml 50 ml Intake Oral 240 ml 240 ml IV Total 2055 ml 1000 ml 700 ml 50 ml # Voids 2 1 # Bowel Movements 0 0 Result Diagram: 08/20/17 1250 08/19/172010 Imaging Last Impressions Chest X-Ray 08/19/17 0000 Signed Impressions: CONCLUSION: No acute cardiopulmonary disease. Gall Bladder Ultrasound 08/17/17 0000 Signed Impressions: CONCLUSION: 1. Multiple gallstones in the gallbladder. No biliary ductal dilatation. No fr ee fluid. Abdomen/Pelvis CT 08/16/172052 Signed Impressions: CONCLUSION: 1. Cholelithiasis and possibility of acute cholecystitis should be entertained in the appropriate clinical setting. 2. Choledocholithiasis is not excluded. 3. Anterior abdominal wall hernia without signs of incarceration or obstructio n. Objective Remarks GENERAL: This is a well-nourished, well-developed patient, in no apparent distress. SKIN: Warm and dry. Pale. Multiple erythematous papular rash bilateral upper extremity, lower extremity. Trunk area with erythematous macular rash. HEENT: Normocephalic. Pupils equal round and reactive. Nose without bleeding. Airway patent. NECK: Trachea midline. CARDIOVASCULAR: Tachycardia without murmurs, gallops, or rubs. RESPIRATORY: Clear to auscultation. Breath sounds equal bilaterally. No wheezes , rales, or rhonchi. GASTROINTESTINAL: Abdomen soft, nondistended. Bowel Sounds normoactive x4. Mild tenderness to palpation mid epigastric region. MUSCULOSKELETAL: Extremities without clubbing, cyanosis, or edema. NEUROLOGICAL: Awake and alert. Oriented to time, place, person. No focal neuro deficit. Moves all extremities. Normal speech. Procedures None A/P Problem List: (1) Cholecystitis ICD Code: K81.9 - Cholecystitis, unspecified Status: Acute Assessment and Plan Ms. Reyna is a 42-year-old female with a history of leukemia, breast cancer, asthma, perforated colon status post colostomy who presents to the emergency department due to right upper quadrant abdominal pain. CT abd/pelvis indicates possible cholecystitis. General surgery was consulted by ED. 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 Medication vismodegib has been held since admission which could possibly exacerbate condition. Restart medication. -Continue Benadryl IV as needed -Continue to monitor. Consult hematology if warranted Leukocytosis, SIRS, sepsis -Increased WBC previous night with tachycardia associated with hypotension -Blood cultures ordered no growth to date -UA negative, chest x-ray negative -WBC trending down, repeat today pending Suspect Acute cholecystitis Diarrhea -clinically improving and resolving -Switch Levaquin 500 mg p.o., Flagyl 500 mg p.o. 3 times daily -General surgery consulted and appreciate recommendation at this time will continue with antibiotics and nonsurgical conservative treatment due to patient being on chemotherapy and previous high risk complication for surgical procedures. Restart diet and advance as tolerated. -Zofran 8 mg every 8 hours, Compazine as needed -Continue to monitor patient. -IV fluids for gentle hydration. Since patient is not tolerating p.o. diet. Provide Ensure. A. fib RVR -Restart metoprolol for rate control -Improved rate control Hypokalemia replete Hypocalcemia replete Hypomagnesemia supplement History of Left breast cancer Basal cell carcinoma - -on vismodegib - f/u with oncologist Dr. Renee -Follows up at [facility] [place]. Full code. SCDs. Discharge Planning Plan to DC home when clinically improved. Continues to have nausea, vomiting. Santos Atkinson Aug 21, 2017 09:31
[2017-08-21 11:14] LABS: AUTOMATED NEUTROPHIL # 7.1 TH/MM3 (1.8-7.7); BASOPHIL % 0.1 % (0.0-2.0); EOSINOPHIL # 0.9 TH/MM3 (0-0.4); EOSINOPHIL % 9.4 % (0.0-4.0); HEMATOCRIT 34.5 % (35.0-46.0); HEMOGLOBIN 11.5 GM/DL (11.6-15.3); LYMPH % 10.5 % (9.0-44.0); MEAN CELL VOLUME 84.1 FL (80.0-100.0); MEAN CORPUSCULAR HEMOGLOBIN 28.1 PG (27.0-34.0); MEAN CORPUSCULAR HGB CONC 33.4 % (32.0-36.0); MEAN PLATELET VOLUME 10.3 FL (7.0-11.0); MONO % 3.4 % (0.0-8.0); MONOCYTE # 0.3 TH/MM3 (0-0.9); NEUT % 76.6 % (16.0-70.0); PLATELET COUNT 145 TH/MM3 (150-450); RED CELL DISTRIBUTION WIDTH 15.9 % (11.6-17.2); WHITE BLOOD COUNT 9.2 TH/MM3 (4.0-11.0)
[2017-08-21] MEDS: ENOXAPARIN SODIUM 40 MG/0.4 ML SYRINGE SQ SCH (17:07)
[2017-08-21] MEDS: SODIUM CHLOR 0.9% 1000 ML INJ 1,000 ML IV SCH (19:54)
[2017-08-21] MEDS: MONTELUKAST SODIUM 10 MG TAB PO SCH (21:14)
[2017-08-21] MEDS ORDERED: LORazepam 2 MG/ML VIAL IV PUSH ONE (21:45)
[2017-08-21] MEDS ORDERED: METOPROLOL TARTRATE 5 MG/5 ML VIAL IV PUSH ONE (21:45)
[2017-08-21] MEDS ORDERED: ADENOSINE IV SOLN 3 MG/ML 2 ML VIAL IV PUSH PRN (22:00)
[2017-08-21] MEDS ORDERED: ADENOSINE IV SOLN 3 MG/ML 2 ML VIAL IV PUSH ONE (22:00)
--- NOTE | 2017-08-21 22:05 | HHI.PR ---
Addendum to Inpatient Note Addendum Reason: Additional Documentation Additional Information S: Nba called for tachycardia up to the 180s. Nba was called at 2129. Pulse was 174 at that time. Then at 2133, pulse was 171. Then at 2137, pulse was 156. Patient reports that she was woken up from sleep with a feeling of anxiety and shortness of breath. She denies any chest pain. O: Vitals: Blood pressure 132/60, pulse 161, pulse ox 100% on 2 L nasal cannula Gen: pale woman who appears anxious HEENT: MMM CV: Tachycardic rate but regular rhythm Resp: CTAB GI: soft, colostomy in place Ext: no edema MUSCULOSKELETAL: Extremities without clubbing, cyanosis, or edema. NEURO: Alert & Oriented x4 to person, place, time, situation. Moves all ext x4 SKIN: diffuse fine macular rash on bilateral upper and lower ext and trunk A/P: Ms. Reyna is a 42-year-old female with a history of leukemia, breast cancer, asthma, perforated colon status post colostomy who was admitted with right upper quadrant abdominal pain who p/w shortness of breath and anxiety, found to be tachycardic, so Nba was called. EKG 2 showed SVT with regular , narrow QRS complex, P waves most visible in V5. -Attempted vagal maneuvers with Valsalva maneuver x2, blowing through straw x2, coughing x2, carotid massage x2 -Attempted adenosine 6 mg IV push without much change in heart rate -Lopressor 5 mg IV brought heart rate down -After administration of Lopressor, vitals were: pulse in the 100s, blood pressure 103/58, satting 100% on 2 L nasal cannula Jacinto Maria MD R2 Aug 21, 2017 22:05
--- NOTE | 2017-08-21 22:15 | RADRPT ---
EXAM DATE: 08/21/2017 10:11 PM EDT AGE/SEX: 42 years / Female INDICATIONS: Shortness of breath. Halicat. CLINICAL DATA: This is the patient's initial encounter. Patient reports that signs and symptoms have been present for 1 day and indicates a pain score of 0/10. MEDICAL/SURGICAL HISTORY: Hypertension. Chronic obstructive pulmonary disease. Emphysema. GE RD. Asthma. Carcinoma, left breast. . Port for chemotherapy. Lumpectomy. [place] [facility] [place]. . FINDINGS: Minimal streakiness is noted within the left lung base consistent with atelectasis or minimal infiltr ate. Clinical correlation is recommended. The right lung is clear. Right subclavian [id number] has its tip in the superior vena cava. The heart is normal. CONCLUSION: Minimal streakiness noted within the left lung base consistent with atelectasis or minimal infiltrate . Clinical correlation is recommended. Electronically signed by: Pradeep Ortiz MD 08/21/2017 10:14 PM EDT
[2017-08-21] MEDS ORDERED: IOHEXOL 350 MG/ML 10 ML VIAL (for RAD DIAG) IVCONTRAST ONE (23:57)
--- NOTE | 2017-08-22 00:09 | RADRPT ---
EXAM DATE: 08/21/2017 11:59 PM EDT AGE/SEX: 42 years / Female INDICATIONS: Shortness of breath. Elevated d-dimer. CLINICAL DATA: This is the patient's initial encounter. Patient reports that signs and symptoms have been present for 1 day and indicates a pain score of 0/10. MEDICAL/SURGICAL HISTORY: Cardiovascular disease. Chronic obstructive pulmonary disease. Carcinom a, breast. Hypertension. None. RADIATION DOSE: 10.64 CTDI (mGy) COMPARISON: No prior [facility] exams available for comparison. TECHNIQUE: Volumetric scanning was performed using a multi-row detector CT scanner during bolus infu emmanuel of 65 ml Omnipaque 350 (iohexol) nonionic water-soluble contrast as a single exam dose. The deuce a was post processed with a variety of visualization algorithms including full volume maximum intensi ty projection and sliding thin slab reformation. Using automated exposure control and adjustment of the mA and/or kV according to patient size, radiation dose was kept as low as reasonably achievable t o obtain optimal diagnostic quality images. FINDINGS: Pulmonary Arteries: No filling defects are seen in the pulmonary arteries out to the subsegmental ve ssels. The left and right pulmonary arteries are normal in diameter. Lung: There is increased density at the posterior lower lobes bilaterally likely related to atelecta sis or mild consolidation. There is a calcified granuloma in the right lower lobe. Effusion: Minimal bilateral pleural effusions. Mediastinum: No evidence of mediastinal or hilar adenopathy. CONCLUSION: 1. No pulmonary embolus. 2. Mild atelectasis or consolidation at the posterior lower lobes. 3. Minimal bilateral pleural effusions. Electronically signed by: Jone Stevens MD 08/22/2017 12:08 AM EDT
[2017-08-22] MEDS: LEVOFLOXACIN 500 MG TAB PO SCH (00:17)
[2017-08-22] MEDS: [UNRECOGNIZED DRUG - OTHER] PO SCH ×2 (00:19→21:33)
[2017-08-22 03:41] VITALS: BP 87/50; PULSE 110; RESP 18; TEMP 97.5; O2SAT 97
[2017-08-22] MEDS: metroNIDAZOLE 500 MG TAB PO SCH ×3 (06:15→23:00)
[2017-08-22] MEDS: diphenhydrAMINE HCL 50 MG/ML VIAL IV PUSH PRN (06:15)
[2017-08-22] MEDS: ONDANSETRON ODT 4 MG TAB PO SCH ×3 (06:16→21:25)
[2017-08-22] MEDS: LEVOTHYROXINE PO SCH (06:17)
[2017-08-22 08:00] VITALS: BP 90/54; PULSE 109; RESP 18; TEMP 97.7; O2SAT 97
[2017-08-22] MEDS: SODIUM CHLORIDE 0.9% FLUSH 10 ML FLUSH IV FLUSH SCH ×2 (09:00→21:00)
[2017-08-22] MEDS: FLUTICASONE PROPIONATE 50 MCG/ACT 16 GM NASAL SPRAY EACH NARE SCH ×2 (09:26→21:26)
[2017-08-22] MEDS: FLUTICASONE 200 MCG/VILANTEROL 25 MCG INHALER INH SCH (09:26)
[2017-08-22] MEDS: PANTOPRAZOLE SOD 40 MG DELAYED RELEASE TAB PO SCH ×2 (09:28→21:25)
[2017-08-22] MEDS: METOPROLOL TARTRATE 25 MG TAB PO SCH ×3 (09:28→17:40)
--- NOTE | 2017-08-22 10:08 | HHI.PR ---
Subjective Remarks Follow-up visit acute cholecystitis, SIRS/Sepsis, rash bilateral upper extremity trunk area, lower extremity, history of basal cell carcinoma, cutaneous T-cell lymphoma. Patient seen and examined today. Episode of SVT with heart rate of 174 last night. HALICAT was called adenosine and metoprolol were given, heart rate became normal. Patient states she was having shortness of breath last night. States overall she has improvement. States she is feeling better. at the bedside. Denies pain and discomfort. Denies SOB/ dyspnea. Denies chest pain, palpitations, headaches, dizziness. Denies fevers, chills, n/v/d. Denies dysuria. Objective Vitals Vital Signs Date Time Temp Pulse Resp B/P (MAP) Pulse Ox O2 Delivery O2 Flow Rate FiO2 08/22/17 08:00 97.7 109 18 90/54 (66) 97 08/22/17 03:41 97.5 110 18 87/50 (62) 97 08/21/17 23:00 98.1 114 19 99/61 (74) 100 08/21/17 22:23 97.3 109 16 103/58 (73) 99 08/21/17 21:45 157 100 08/21/17 21:38 156 24 132/60 (84) 100 08/21/17 21:34 98.0 171 26 118/67 (84) 100 08/21/17 21:30 97.5 175 26 133/77 (95) 98 08/21/17 21:30 100 Nasal Cannula 1.00 08/21/17 21:30 100 3.00 08/21/17 19:51 98.2 81 18 94/52 (66) 100 08/21/17 16:58 08/21/17 16:00 97.4 91 18 95/54 (68) 100 08/21/17 15:21 68 08/21/17 13:21 08/21/17 11:59 98.1 87 17 86/54 (65) 100 I/O 08/21/17 08/21/17 08/21/17 08/22/17 08/22/17 08/22/17 07:00 15:00 23:00 07:00 15:00 23:00 Intake Total 940 ml 50 ml 1650 ml 480 ml Balance 940 ml 50 ml 1650 ml 480 ml Intake Oral 240 ml 1100 ml 480 ml IV Total 700 ml 50 ml 550 ml # Voids 1 5 3 # Bowel Movements 0 1 1 Result Diagram: 08/21/17 1015 08/19/172010 Imaging Last Impressions Chest X-Ray 08/21/17 Signed Impressions: CONCLUSION: Minimal streakiness noted within the left lung base consistent with atelectasis or minimal infiltrate. Clinical correlation is recommended. CT Angiography 08/21/17 Signed Impressions: CONCLUSION: 1. No pulmonary embolus. 2. Mild atelectasis or consolidation at the posterior lower lobes. 3. Minimal bilateral pleural effusions. Gall Bladder Ultrasound 08/17/17 Signed Impressions: CONCLUSION: 1. Multiple gallstones in the gallbladder. No biliary ductal dilatation. No fr ee fluid. Abdomen/Pelvis CT 08/16/172052 Signed Impressions: CONCLUSION: 1. Cholelithiasis and possibility of acute cholecystitis should be entertained in the appropriate clinical setting. 2. Choledocholithiasis is not excluded. 3. Anterior abdominal wall hernia without signs of incarceration or obstructio n. Objective Remarks GENERAL: This is a well-nourished, well-developed patient, in no apparent distress. SKIN: Warm and dry. Pale. Multiple erythematous papular rash bilateral upper extremity, lower extremity. Trunk area with erythematous macular rash - Improving HEENT: Normocephalic. Pupils equal round and reactive. Nose without bleeding. Airway patent. NECK: Trachea midline. CARDIOVASCULAR: Tachycardia without murmurs, gallops, or rubs. RESPIRATORY: Clear to auscultation. Breath sounds equal bilaterally. No wheezes , rales, or rhonchi. GASTROINTESTINAL: Abdomen soft, nondistended. Bowel Sounds normoactive x4. Mild tenderness to palpation mid epigastric region. Colostomy in place. MUSCULOSKELETAL: Extremities without clubbing, cyanosis, or edema. NEUROLOGICAL: Awake and alert. Oriented to time, place, person. No focal neuro deficit. Moves all extremities. Normal speech. Procedures None A/P Problem List: (1) Cholecystitis ICD Code: K81.9 - Cholecystitis, unspecified Status: Acute Assessment and Plan Ms. Reyna is a 42-year-old female with a history of leukemia, breast cancer, asthma, perforated colon status post colostomy who presents to the emergency department due to right upper quadrant abdominal pain. CT abd/pelvis indicates possible cholecystitis. General surgery was consulted by ED. 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 Medication vismodegib has been held since admission which could possibly exacerbate condition. Restart medication. -Continue Benadryl as needed, hydrocortisone cream -Continue to monitor. Consult hematology if warranted ?Pneumonia SIRS/ Sepsis -Increased WBC with tachycardia associated with hypotension, previously -Blood cultures ordered no growth to date -Chest x-ray 08/19 negative -WBC trended down -CT angios showed 1. No pulmonary embolus. Mild atelectasis or consolidation at the posterior lower lobes. Minimal bilateral pleural effusion -Chest x-ray 08/22/17 showed minimal streakiness noted within the left lung base consistent with atelectasis or minimal infiltrate. Clinical correlation is recommend -Increase Levaquin to 750 mg. Incentive spirometer encourage. Urinary tract infection -Urine culture growing lactobacillus species -Currently on Levaquin. Will check sensitivities and adjust antibiotics accordingly Suspect Acute cholecystitis Diarrhea -clinically improving and resolving -Levaquin 750 mg p.o., Flagyl 500 mg p.o. 3 times daily -General surgery consulted and appreciate recommendation at this time will continue with antibiotics and nonsurgical conservative treatment due to patient being on chemotherapy and previous high risk complication for surgical procedures. Restart diet and advance as tolerated. -Zofran 8 mg every 8 hours, Compazine as needed -Continue to monitor patient. -IV fluids for gentle hydration. Provide Ensure. A. fib RVR -Metoprolol for rate control. Increase 12.5mg TID -Monitor HR. -Episode of SVT last night HALICAT was called and was given adenosine and metoprolol IV. HR improved. Hypokalemia replete Hypocalcemia replete Hypomagnesemia supplement History of Left breast cancer Basal cell carcinoma - -on vismodegib - f/u with oncologist Dr. Renee -Follow up at [facility] [place]. Full code. SCDs. Discharge Planning Plan to DC home when clinically improved. Episode of SVT last night. Santos Atkinson Aug 22, 2017 10:08
[2017-08-22] MEDS ORDERED: diphenhydrAMINE HCL 25 MG CAP PO PRN (10:15)
[2017-08-22 10:27] LABS: HEMATOCRIT 29.6 % (35.0-46.0); MEAN CELL VOLUME 83.4 FL (80.0-100.0); MEAN CORPUSCULAR HEMOGLOBIN 28.2 PG (27.0-34.0); MEAN CORPUSCULAR HGB CONC 33.8 % (32.0-36.0); MEAN PLATELET VOLUME 9.4 FL (7.0-11.0); PLATELET COUNT 150 TH/MM3 (150-450); RED BLOOD COUNT 3.55 MIL/MM3 (4.00-5.30); RED CELL DISTRIBUTION WIDTH 16.1 % (11.6-17.2); WHITE BLOOD COUNT 8.2 TH/MM3 (4.0-11.0)
[2017-08-22 10:51] LABS: BICARBONATE 23.6 MEQ/L (21.0-32.0); CALCIUM 7.2 MG/DL (8.5-10.1); CREATININE 0.5 MG/DL (0.50-1.00)
[2017-08-22 11:07] LABS: CALCIUM-PROTEIN CORRECTED 8.5 MG/DL (8.5-10.1); TOTAL PROTEIN 4.7 GM/DL (6.4-8.2)
[2017-08-22] MEDS ORDERED: diphenhydrAMINE HCL 25 MG CAP PO ONE (11:45)
[2017-08-22] MEDS: HYDROCORTISONE 1% OINT 30 GM TUBE TOPICAL SCH ×2 (11:45→21:25)
[2017-08-22 12:00] VITALS: BP 93/52; PULSE 101; RESP 18; TEMP 97.5; O2SAT 98
[2017-08-22 16:00] VITALS: BP 88/51; PULSE 96; RESP 17; TEMP 98; O2SAT 99
--- NOTE | 2017-08-22 16:03 | EKG ---
Date Performed: 08/21/2017 Time Performed: 21:49:25 PTAGE: 42 years EKG: SUPRAVENTRICULAR TACHYCARDIA NONSPECIFIC ST & T-WAVE ABNORMALITY ABNORMAL RHYTHM ECG PREVIOUS TRACING : 12/30/2016 07.18 There is a couplet of beats with somewhat wider QRS complex es which may be aberrant conduction of premature beats vs ventricular beats. They do not interrupt th e ongoing supraventricular tachycardia; however, the short pause does allow seeing a P-wave in the ne xt beat. Since previous tracing, the arrhythmia is new and the ST-T changes are new. Clinical correla tion is recommended. DOCTOR: Karsten Cerrato Interpretating Date/Time 08/22/2017 16:01:19
[2017-08-22] MEDS ORDERED: POTASSIUM CHLORIDE 20 MEQ CONTROLLED RELEASE TAB PO ONE (17:00)
--- NOTE | 2017-08-22 17:07 | PD.ID.CON ---
History of Present Illness Service ID Consult Requested By MIRI Kinney Reason for Consult Evaluation and management of acute cholecystitis, lactobacillus UTI, skin rash in view of multiple antibiotic allergies. Primary Care Physician Shreyas Renee DO Diagnoses: History of Present Illness Ms. Reyna is a 42-year-old female with an extremely complicated past medical history with most notable of her history including T-cell lymphoma, perforated colon from possibly some steroid use as well as chemotherapy for basal cell carcinoma on her scalp. Patient has a port in place as well as a colostomy in place. With this background patient presents to the emergency department with complaint of several hours of right upper quadrant abdominal pain. Due to persistent pain she presented to the emergency department for further evaluation. Upon further questioning she reports that the colostomy is from perforated colon which apparently was a spontaneous event when she was hospitalized in the past. She thinks it possibly could be related to steroid use during 1 of her asthma attacks. Patient denies any change in her colostomy output. Denies any fever or chills. 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 She also had breast cancer. She also had a T-cell lymphoma. She also is additionally undergoing active chemotherapy for what appears to be a basal cell carcinoma in the scalp adjacent to her Ommaya reservoir. Reportedly patient also had a thyroid cancer. Her oncologist is Dr. Renee. Due to her complicated history patient was admitted to the hospital underwent evaluation by surgical team Dr. Smith. Dr. Smith discussed patient's history with patient's primary care physician and was decided that patient should have an elective procedure in the future and to avoid any current surgeries. Patient reports her most recent chemo was a week prior to her admission using her port. She denies having any port related infections in the past. Patient has been medically managed for her acute cholecystitis with Levaquin IV as well as Flagyl IV. She appears to be doing well other than she has a diffuse rash all over her body. She reports that this rash started 1 day after presenting to the emergency department. It appears that she received Azactam in the emergency department and given her history of penicillin allergy it certainly possible that this was related to that allergy. Patient denies any diarrhea nausea or vomiting. She reports that other than periods of hypotension she has been feeling okay. She thinks that the periods of hypotension lead to further workup and are prolonging her stay in the hospital. Regarding her rash she reports that she does have itchiness but she attributes it to dry skin as well. Overall she thinks that the rash is fading and is most prominent on her lower extremities at the present time. She did report that this rash was present on her chest,breast, anterior abdominal as well as possibly her back in addition to her limbs. Patient denies any dysuria or any suprapubic pain or flank pain. She thinks a UA was collected in the appearance of her hypotension. Infectious diseases consulted for evaluation and management of acute cholecystitis, lactobacillus UTI, skin rash and review of multiple antibiotic allergies. Review of Systems Constitutional: DENIES: Diaphoretic episodes, Fatigue, Fever, Weight gain, Weight loss, Chills, Dizziness, Change in appetite, Night Sweats Endocrine: DENIES: Abnorml menstrual pattern, Heat/cold intolerance, Polydipsia , Polyuria, Polyphagia Eyes: DENIES: Blurred vision, Diplopia, Eye inflammation, Eye pain, Vision loss , Photosensitivity, Double Vision Ears, nose, mouth, throat: DENIES: Tinnitus, Hearing loss, Vertigo, Nasal discharge, Oral lesions, Throat pain, Hoarseness, Ear Pain, Running Nose, Epistaxis, Sinus Pain, Toothache, Odynophagia Respiratory: DENIES: Apneas, Cough, Snoring, Wheezing, Hemoptysis, Sputum production, Shortness of breath Cardiovascular: DENIES: Chest pain, Palpitations, Syncope, Dyspnea on Exertion , PND, Lower Extremity Edema, Orthopnea, Claudication Gastrointestinal: DENIES: Abdominal pain, Black stools, Bloody stools, Constipation, Diarrhea, Nausea, Vomiting, Difficulty Swallowing, Anorexia Genitourinary: DENIES: Abnormal vaginal bleeding, Dysmenorrhea, Dyspareunia, Sexual dysfunction, Urinary frequency, Urinary incontinence, Urgency, Hematuria , Dysuria, Nocturia, Vaginal discharge Musculoskeletal: DENIES: Joint pain, Muscle aches, Stiffness, Joint Swelling, Back pain, Neck pain Integumentary: COMPLAINS OF: Rash, DENIES: Abnormal pigmentation, Pruritus, Nail changes, Breast masses, Breast skin changes, Nipple discharge Hematologic/lymphatic: DENIES: Bruising, Lymphadenopathy Immunologic/allergic: DENIES: Eczema, Urticaria Neurologic: DENIES: Abnormal gait, Headache, Localized weakness, Paresthesias, Seizures, Speech Problems, Tremor, Poor Balance Psychiatric: DENIES: Anxiety, Confusion, Mood changes, Depression, Hallucinations, Agitation, Suicidal Ideation, Homicidal Ideation, Delusions Except as stated in HPI: all other systems reviewed are Neg Past Family Social History Allergies: Coded Allergies: aspirin (Unverified Allergy, Severe, 08/16/17) ibuprofen (Verified Allergy, Severe, RESPIRATORY DISTRESS, 08/16/17) latex (Unverified Allergy, Severe, 08/16/17) onion (Verified Allergy, Severe, SHORTNESS OF BREATH, 08/16/17) peanut (Verified Allergy, Severe, Anaphylaxis, 08/16/17) shellfish derived (Verified Allergy, Severe, Anaphylaxis, 08/16/17) Fish Containing Products (Unverified Allergy, Mild, 08/16/17) bee venom protein (honey bee) (Unverified Allergy, Mild, 08/16/17) clindamycin (Unverified Allergy, Mild, Rash, 08/16/17) fluconazole (Unverified Allergy, Mild, 08/16/17) ipratropium (Unverified Allergy, Mild, 08/16/17) penicillin G (Unverified Allergy, Mild, Rash, 08/16/17) Uncoded Allergies: LIDOCAINE WITH EPINEPHRINE (Allergy, Severe, Anaphylaxis, 12/30/16) PT STATES SHE IS ALLERGIC TO THE PRESERVATIVE IN LIDOCAINE WITH EPI. SHE CAN TOLERAT LIDOCAINE SEPARATLY AND EPINEPHRINE SEPERATLY ITS THE PRESERVATIVE Past Medical History Childhood leukemia for which she had a Ommaya reservoir placed T-cell lymphoma Skin cancer Left breast cancer Thyroid cancer Spontaneous perforation of the colon. Past Surgical History Ommaya reservoir placement as an probably due to [employer] involvement of the leukemia possibly for infusion of methotrexate or other chemotherapy agents. [id number] in the right subclavian area Lung biopsy Thyroidectomy Colostomy Left breast lumpectomy 4 Skin biopsies Reported Medications Reported Meds & Active Scripts Active Levaquin (Levofloxacin) 500 Mg Tablet 500 Mg PO Q24H 5 Days Flagyl (Metronidazole) 500 Mg Tab 500 Mg PO Q8H 5 Days Reported Epinephrine Inj (Epinephrine) 0.15 Mg/0.3 Ml Inj 0.3 Mg IM DIRECTED Ondansetron (Ondansetron HCl) 8 Mg Tab 8 Mg PO TID Sumatriptan (Sumatriptan Succinate) 25 Mg Tab 25 Mg PO ONCE PRN If a satisfactory response has not been obtained at 2 hours, a second dose may be administered Flexeril (Cyclobenzaprine HCl) 10 Mg Tab 10 Mg PO TID Tirosint (Levothyroxine Sodium) 13 Mcg Cap 13 Mcg DAILY Erivedge (Vismodegib) 150 Mg Cap Breo Ellipta Inh (Fluticasone/Vilanterol) 200-25 Mcg/Act Inh 1 Puff INH DAILY Use daily at the same time. Singulair (Montelukast Sodium) 10 Mg Tab 10 Mg PO HS Infed Inj (Iron Dextran) 100 Mg/2 Ml Inj 100 Mg IV-CENTRAL MONTHLY PRN Flonase Nasal [place] (Fluticasone Nasal [place]) 50 Mcg/Act [place] 50 Mcg EACH NARE BID Proventil Hfa 6.7 GM Inh (Albuterol Sulfate) 90 Mcg/Act Aer 2 Puff INH Q6H PRN Albuterol Neb (Albuterol Sulfate) 2.5 Mg/3 Ml Neb 2.5 Mg NEB Q4HR NEB PRN Metoprolol Tartrate 25 Mg Tab 12.5 Mg PO BID Diltiazem ER 12 HR (Diltiazem HCl) 60 Mg Caper 60 Mg PO DAILY Pantoprazole (Pantoprazole Sodium) 40 Mg Tab 40 Mg PO BID Active Ordered Medications Current Medications Medications (Trade) Dose Ordered Sig/Minda Route Start Time Stop Time Status Last Admin (NS Flush) 2 ml UNSCH PRN IV FLUSH 08/17/17 00:45 (NS Flush) 2 ml BID IV FLUSH 08/17/17 09:00 08/21/17 09:19 (Tylenol) 650 mg Q4H PRN PO 08/17/17 00:45 08/19/17 17:30 (Narcan Inj) 0.4 mg UNSCH PRN IV PUSH 08/17/17 00:45 (Milk Of Magnesia Liq) 30 ml Q12H PRN PO 08/17/17 00:45 (Senokot) 17.2 mg Q12H PRN PO 08/17/17 00:45 (Dulcolax Supp) 10 mg DAILY PRN RECTAL 08/17/17 00:45 (Lactulose Liq) 30 ml DAILY PRN PO 08/17/17 00:45 (Morphine Inj) 4 mg Q3H PRN IV PUSH 08/17/17 01:45 08/17/17 14:16 (Proair Hfa Inh) 2 puff Q6H PRN INH 08/17/17 11:00 08/21/17 09:18 (Albuterol Neb) 2.5 mg Q4HR NEB PRN NEB 08/17/17 11:00 (Breo Ellipta 200-25 Inh) 1 puff DAILY INH 08/18/17 09:00 08/22/17 09:26 (Singulair) 10 mg HS PO 08/17/17 21:00 08/21/17 21:14 (Protonix) 40 mg BID PO 08/17/17 21:00 08/22/17 09:28 Patient Own Medication PT OWN MED: Levothyroxine (Tirosi... DAILY@0600 PO 08/18/17 06:00 08/22/17 06:17 (Flonase Cristopher Spr) 1 spray BID EACH NARE 08/17/17 21:00 08/22/17 09:26 (Flexeril) 10 mg HS PRN PO 08/17/17 21:00 08/18/17 20:38 (Flagyl) 500 mg Q8H PO 08/19/17 15:00 08/22/17 14:42 (Zofran Odt) 8 mg Q8HR PO 08/19/17 14:00 08/22/17 14:42 (Compazine Inj) 5 mg Q4H PRN IV PUSH 08/19/17 08:45 08/20/17 02:53 Sodium Chloride 1,000 ml @ 30 mls/hr Q24H IV 08/19/17 08:45 08/21/17 19:54 (Lovenox Inj) 40 mg Q24H SQ 08/19/17 17:00 08/22/17 17:30 (Pill Splitter) 1 ea UNSCH PRN OTHER 08/20/17 09:45 Patient Own Medication 1 ea HS PO 08/21/17 21:00 Future hold 08/22/17 00:19 (Levaquin) 750 mg Q24H PO 08/23/17 01:00 08/30/17 00:59 (Lopressor) 12.5 mg TID PO 08/22/17 13:00 08/22/17 12:49 (Benadryl) 50 mg Q4H PRN PO 08/22/17 14:15 (Nutracort 1% Oint) 1 applic BID TOPICAL 08/22/17 11:45 Patient Own Medication PT OWN MED: Diltia... DAILY PO 08/23/17 09:00 Family History Reviewed Social History Denies any alcohol, smoking or drug abuse. Lives with her family. Physical Exam Vital Signs Vital Signs Date Time Temp Pulse Resp B/P (MAP) Pulse Ox O2 Delivery O2 Flow Rate FiO2 08/22/17 16:03 3.00 08/22/17 12:00 97.5 101 18 93/52 (66) 98 08/22/17 08:00 97.7 109 18 90/54 (66) 97 08/22/17 03:41 97.5 110 18 87/50 (62) 97 08/21/17 23:00 98.1 114 19 99/61 (74) 100 08/21/17 22:23 97.3 109 16 103/58 (73) 99 08/21/17 21:45 157 100 08/21/17 21:38 156 24 132/60 (84) 100 08/21/17 21:34 98.0 171 26 118/67 (84) 100 08/21/17 21:30 97.5 175 26 133/77 (95) 98 08/21/17 21:30 100 Nasal Cannula 1.00 08/21/17 21:30 100 3.00 08/21/17 19:51 98.2 81 18 94/52 (66) 100 Physical Exam GENERAL: This is a well-nourished, well-developed patient, in no apparent distress. SKIN: Diffuse macular rash present all over her body most prominent in bilateral lower extremities. HEAD: Atraumatic. Normocephalic. No temporal or scalp tenderness. EYES: Pupils equal round and reactive. Extraocular motions intact. No scleral icterus. No injection or drainage. ENT: Nose without bleeding, purulent drainage or septal hematoma. Throat without erythema, tonsillar hypertrophy or exudate. Uvula midline. Airway patent. NECK: Trachea midline. Supple, nontender, no meningeal signs. CARDIOVASCULAR: Regular rate and rhythm without murmurs, gallops, or rubs. RESPIRATORY: Clear to auscultation. Breath sounds equal bilaterally. No wheezes , rales, or rhonchi. GASTROINTESTINAL: Abdomen soft, colostomy site with no evidence of infection. MUSCULOSKELETAL: Extremities without clubbing, cyanosis, or edema. No joint tenderness, effusion, or edema noted. No calf tenderness. Negative Homans sign bilaterally. NEUROLOGICAL: Awake and alert. Nonfocal exam normal speech. Psych cooperative possible flat affect IV line sites with no evidence of infection. Port site with no evidence of infection. Laboratory Laboratory Tests Test 08/21/17 21:50 08/22/17 09:40 D-Dimer Quantitative (PE/DVT) 1.54 Troponin I LESS THAN 0.02 White Blood Count 8.2 Red Blood Count 3.55 Hemoglobin 10.0 Hematocrit 29.6 Mean Corpuscular Volume 83.4 Mean Corpuscular Hemoglobin 28.2 Mean Corpuscular Hemoglobin Concent 33.8 Red Cell Distribution Width 16.1 Platelet Count 150 Mean Platelet Volume 9.4 Blood Urea Nitrogen 4 Creatinine 0.50 Random Glucose 116 Total Protein 4.7 Calcium Level 7.2 Sodium Level 146 Potassium Level 3.2 Chloride Level 112 Carbon Dioxide Level 23.6 Anion Gap 10 Estimat Glomerular Filtration Rate 137 Protein Corrected Calcium 8.5 Date/Time Source Procedure Growth Status 08/19/17 20:11 Blood Peripheral Aerobic Blood Culture - Preliminary NO GROWTH IN 3 DAYS Resulted 08/19/17 20:11 Blood Peripheral Anaerobic Blood Culture - Preliminary NO GROWTH IN 3 DAYS Resulted 08/19/17 19:20 Urine Clean Catch Urine Culture - Final Lactobacillus Species Complete Result Diagram: 08/22/1740 08/22/17 0940 Imaging Last Impressions Chest X-Ray 08/21/17 0000 Signed Impressions: CONCLUSION: Minimal streakiness noted within the left lung base consistent with atelectasis or minimal infiltrate. Clinical correlation is recommended. CT Angiography 08/21/17 Signed Impressions: CONCLUSION: 1. No pulmonary embolus. 2. Mild atelectasis or consolidation at the posterior lower lobes. 3. Minimal bilateral pleural effusions. Gall Bladder Ultrasound 08/17/17 Signed Impressions: CONCLUSION: 1. Multiple gallstones in the gallbladder. No biliary ductal dilatation. No fr ee fluid. Abdomen/Pelvis CT 08/16/172052 Signed Impressions: CONCLUSION: 1. Cholelithiasis and possibility of acute cholecystitis should be entertained in the appropriate clinical setting. 2. Choledocholithiasis is not excluded. 3. Anterior abdominal wall hernia without signs of incarceration or obstructio n. Assessment and Plan Assessment and Plan Acute cholecystitis Lactobacillus in urine likely contaminant. Rash: likely secondary to Azactam IV given her PCN allergy and timing of administration. Multiple cancers: leukemia, T cell lymphoma, Basal cell Ca, breast cancer, thyroid cancer. Immune compromised undergoing chemotherapy. Omaya reservoir in place from childhood ChemoRx in CSF for Leukemia. Port in place Colostomy for past h/o ruptured colon ? steroid related for asthma. Past h/o Cdiff. Recs: Continue Levaquin IV Continue Flagyl IV Will dw surgery team if antibiotics can be stopped. No antibiotics needed for lactobacillus as asymptomatic. Hypotension ? other etiologies autonomic etc. Consider checking BP in all limbs and orthostatic BP to help sort out etiology. Monitor intake of fluid closely ? prerenal. No increase in colostomy output per patient. Avoid checking Cdiff unless diarrhea and signs of infection/sepsis. Patient has prior h/o Cdiff many yrs back could be colonized. Gerri To MD Aug 22, 2017 17:07
[2017-08-22] MEDS: ENOXAPARIN SODIUM 40 MG/0.4 ML SYRINGE SQ SCH (17:30)
[2017-08-22 19:19] VITALS: BP 112/54; PULSE 90; RESP 17; TEMP 97.5; O2SAT 100
[2017-08-22] MEDS: SODIUM CHLOR 0.9% 1000 ML INJ 1,000 ML IV SCH (20:45)
[2017-08-22] MEDS: MONTELUKAST SODIUM 10 MG TAB PO SCH (21:25)
[2017-08-22] MEDS: diphenhydrAMINE HCL 25 MG CAP PO PRN (21:28)
[2017-08-22 23:52] VITALS: BP 98/55; PULSE 94; RESP 17; TEMP 97.4; O2SAT 95
[2017-08-23] VITALS (7 sets, daily range): BP systolic 95–119; BP diastolic 53–57; PULSE 76–95; RESP 16–18; TEMP 97.4–97.8; O2SAT 96–99
[2017-08-23] MEDS: LEVOFLOXACIN 750 MG TAB PO SCH (01:24)
[2017-08-23] MEDS: metroNIDAZOLE 500 MG TAB PO SCH ×2 (05:16→15:01)
[2017-08-23] MEDS: ONDANSETRON ODT 4 MG TAB PO SCH ×3 (05:16→21:07)
[2017-08-23] MEDS: diphenhydrAMINE HCL 25 MG CAP PO PRN ×4 (05:16→21:06)
[2017-08-23] MEDS: LEVOTHYROXINE PO SCH (05:19)
[2017-08-23 06:41] LABS: HEMATOCRIT 28.8 % (35.0-46.0); HEMOGLOBIN 9.5 GM/DL (11.6-15.3); MEAN CELL VOLUME 83.6 FL (80.0-100.0); MEAN CORPUSCULAR HEMOGLOBIN 27.7 PG (27.0-34.0); MEAN CORPUSCULAR HGB CONC 33.1 % (32.0-36.0); PLATELET COUNT 172 TH/MM3 (150-450); RED BLOOD COUNT 3.45 MIL/MM3 (4.00-5.30); WHITE BLOOD COUNT 7.6 TH/MM3 (4.0-11.0)
[2017-08-23 07:01] LABS: BICARBONATE 25.9 MEQ/L (21.0-32.0); CALCIUM 7.5 MG/DL (8.5-10.1); CREATININE 0.45 MG/DL (0.50-1.00)
[2017-08-23] MEDS: FLUTICASONE 200 MCG/VILANTEROL 25 MCG INHALER INH SCH (07:27)
[2017-08-23] MEDS: HYDROCORTISONE 1% OINT 30 GM TUBE TOPICAL SCH ×2 (07:28→21:00)
[2017-08-23] MEDS: METOPROLOL TARTRATE 25 MG TAB PO SCH ×3 (07:28→16:11)
[2017-08-23] MEDS: PANTOPRAZOLE SOD 40 MG DELAYED RELEASE TAB PO SCH ×2 (07:28→21:07)
[2017-08-23] MEDS: SODIUM CHLORIDE 0.9% FLUSH 10 ML FLUSH IV FLUSH SCH ×2 (07:28→21:08)
[2017-08-23] MEDS: FLUTICASONE PROPIONATE 50 MCG/ACT 16 GM NASAL SPRAY EACH NARE SCH ×2 (07:28→21:08)
[2017-08-23] MEDS: DILTIAZEM 60 MG PO SCH (08:58)
[2017-08-23] MEDS ORDERED: POTASSIUM CHLORIDE 20 MEQ CONTROLLED RELEASE TAB PO ONE (11:45)
[2017-08-23] MEDS ORDERED: LACTOBACILLUS ACIDOPHILUS TAB PO ONE (11:45)
--- NOTE | 2017-08-23 11:45 | HHI.PR ---
Subjective Remarks Patient states some loose stools from colostomy. Tolerating her diet. Abdominal pain better. No heart palpitations overnight. No complaint of chest pain. Objective Vitals Vital Signs Date Time Temp Pulse Resp B/P (MAP) Pulse Ox O2 Delivery O2 Flow Rate FiO2 08/23/17 11:10 97.6 79 16 102/55 (71) 99 08/23/17 07:33 97.7 95 17 98/56 (70) 97 08/23/17 03:36 97.4 86 18 95/53 (67) 96 08/22/17 23:52 97.4 94 17 98/55 (69) 95 08/22/17 19:19 97.5 90 17 112/54 (73) 100 08/22/17 16:03 3.00 08/22/17 16:00 98.0 96 17 88/51 (63) 99 08/22/17 12:00 97.5 101 18 93/52 (66) 98 I/O 08/22/17 08/22/17 08/22/17 08/23/17 08/23/17 08/23/17 07:00 15:00 23:00 07:00 15:00 23:00 Intake Total 480 ml 1960 ml 360 ml Balance 480 ml 1960 ml 360 ml Intake Oral 480 ml 360 ml 360 ml IV Total 1600 ml # Voids 3 4 2 # Bowel Movements 1 2 1 Result Diagram: 08/23/17 0605 08/23/17 0605 Other Results Microbiology Date/Time Source Procedure Growth Status 08/19/17 20:11 Blood Peripheral Aerobic Blood Culture - Preliminary NO GROWTH IN 4 DAYS Resulted 08/19/17 20:11 Blood Peripheral Anaerobic Blood Culture - Preliminary NO GROWTH IN 4 DAYS Resulted 08/19/17 19:20 Urine Clean Catch Urine Culture - Final Lactobacillus Species Complete Objective Remarks GENERAL: This is a well-nourished, well-developed patient, in no apparent distress. CARDIOVASCULAR: irregular rhythmn, tachycardia RESPIRATORY: Clear to auscultation. Breath sounds equal bilaterally. No wheezes , rales, or rhonchi. GASTROINTESTINAL: Abdomen soft, nontender, no rebound, no guarding, nondistended , normoactive bowel sounds; colostomy with loose watery stools in place MUSCULOSKELETAL: Extremities without clubbing, cyanosis, or edema. NEURO: Alert & Oriented x4 to person, place, time, situation. Moves all ext x4 SKIN: multiple fine erythematous macular bilateral upper and lower ext and trunk Procedures None A/P Problem List: (1) Cholecystitis ICD Code: K81.9 - Cholecystitis, unspecified Status: Acute Assessment and Plan Ms. Reyna is a 42-year-old female with a history of leukemia, breast cancer, asthma, perforated colon status post colostomy who presents to the emergency department due to right upper quadrant abdominal pain. CT abd/pelvis indicates possible cholecystitis. General surgery was consulted by ED. Suspect Acute cholecystitis clinically improving Diarrhea -clinically still persistwill start Lactinex -Transitioned to Levaquin 500mg and Flagyl 500mg TID; ID is recommending likely to discontinue antibiotics as patient is currently on day #7 -General surgery consulted and appreciate recommendation at this time will continue with antibiotics and nonsurgical conservative treatment due to patient being on chemotherapy and previous high risk complication for surgical procedures. Restart diet and advanced as tolerated.. atrial fib with RVR - restart metoprolol for rate control ; patient has brought in her home Cardizem to restart. leukocytosis -resolved Hypokalemia replete Hypocalcemia replete Hypomagnesemia supplement History of Left breast cancer Basal cell carcinoma - -on vismodegib - f/u with oncology -Follows up at [facility]. Patient had no active urinary tract infection on presentation as patient had 50, 000 to 100,000 mixed zaira in urine cultures contact dermatitis - ? due to detergent from sheet - benadryl 25 mg IV prn Full code. SCDs. Discharge Planning Home in am if continues to clinically improve and wbc trends down with negative blood cultures Madyson Sidhu MD Aug 23, 2017 11:45
[2017-08-23] MEDS ORDERED: DILTIAZEM 60 MG PO ONE (12:00)
[2017-08-23] MEDS: ENOXAPARIN SODIUM 40 MG/0.4 ML SYRINGE SQ SCH (16:10)
[2017-08-23] MEDS: SODIUM CHLOR 0.9% 1000 ML INJ 1,000 ML IV SCH (16:12)
[2017-08-23] MEDS: [UNRECOGNIZED DRUG - OTHER] PO SCH (21:00)
[2017-08-23] MEDS: MONTELUKAST SODIUM 10 MG TAB PO SCH (21:07)
[2017-08-24] VITALS: BP 111/56; PULSE 97; RESP 16; TEMP 97.8; O2SAT 98
[2017-08-24] MEDS: metroNIDAZOLE 500 MG TAB PO SCH ×3 (00:55→14:24)
[2017-08-24] MEDS: LEVOFLOXACIN 750 MG TAB PO SCH (02:56)
[2017-08-24 04:00] VITALS: BP 101/60; PULSE 83; RESP 16; TEMP 97.5; O2SAT 98
[2017-08-24] MEDS: ONDANSETRON ODT 4 MG TAB PO SCH ×2 (06:00→14:18)
[2017-08-24] MEDS: LEVOTHYROXINE PO SCH (06:00)
[2017-08-24 08:00] VITALS: BP 104/64; PULSE 71; PULSE 91; RESP 20; TEMP 97.5; O2SAT 99
[2017-08-24] MEDS ORDERED: LACTCHW3 CHEW (08:50)
--- NOTE | 2017-08-24 08:51 | HHI.DS ---
Discharge Summary Admission Date August 17, 2017 at 00:36 Discharge Date: Aug 24, 2017 Admitting Diagnosis Abdominal pain, suspected cholecystitis (1) Cholecystitis ICD Code: K81.9 - Cholecystitis, unspecified Diagnosis: Principal Status: Acute (2) Leukocytosis ICD Code: D72.829 - Elevated white blood cell count, unspecified Diagnosis: Secondary Status: Resolved Procedures None Brief History - From Admission Ms. Reyna is a 42-year-old female with a history of leukemia, breast cancer, asthma, perforated colon status post colostomy who presents to the emergency department due to right upper quadrant abdominal pain. Her pain started on 08/16 in the morning and has progressively gotten worse throughout the day. She denies any fever or chills. She normally has nausea and uses Zofran. She reports some diarrhea as well. No dysuria or hematuria. Denies any chest pain, cough. CBC/BMP: 08/23/17 0605 08/23/17 0605 Significant Findings Laboratory Tests Test 08/21/17 10:15 08/21/17 21:50 08/22/17 09:40 08/23/17 06:05 Hemoglobin 11.5 GM/DL (11.6-15.3) 10.0 GM/DL (11.6-15.3) 9.5 GM/DL (11.6-15.3) Hematocrit 34.5 % (35.0-46.0) 29.6 % (35.0-46.0) 28.8 % (35.0-46.0) Platelet Count 145 TH/MM3 (150-450) Neutrophils (%) (Auto) 76.6 % (16.0-70.0) Eosinophils (%) (Auto) 9.4 % (0.0-4.0) Eosinophils # (Auto) 0.9 TH/MM3 (0-0.4) D-Dimer Quantitative (PE/DVT) 1.54 MG/L FEU (0.00-0.50) Troponin I LESS THAN 0.02 NG/ML Red Blood Count 3.55 MIL/MM3 (4.00-5.30) 3.45 MIL/MM3 (4.00-5.30) Blood Urea Nitrogen 4 MG/DL (7-18) 5 MG/DL (7-18) Random Glucose 116 MG/DL (74-106) 108 MG/DL (74-106) Total Protein 4.7 GM/DL (6.4-8.2) Calcium Level 7.2 MG/DL (8.5-10.1) 7.5 MG/DL (8.5-10.1) Sodium Level 146 MEQ/L (136-145) Potassium Level 3.2 MEQ/L (3.5-5.1) 3.4 MEQ/L (3.5-5.1) Chloride Level 112 MEQ/L (98-107) 111 MEQ/L (98-107) Creatinine 0.45 MG/DL (0.50-1.00) Imaging Last Impressions Chest X-Ray 08/21/17 Signed Impressions: CONCLUSION: Minimal streakiness noted within the left lung base consistent with atelectasis or minimal infiltrate. Clinical correlation is recommended. CT Angiography 08/21/17 Signed Impressions: CONCLUSION: 1. No pulmonary embolus. 2. Mild atelectasis or consolidation at the posterior lower lobes. 3. Minimal bilateral pleural effusions. Gall Bladder Ultrasound 08/17/17 Signed Impressions: CONCLUSION: 1. Multiple gallstones in the gallbladder. No biliary ductal dilatation. No fr ee fluid. Abdomen/Pelvis CT 08/16/172052 Signed Impressions: CONCLUSION: 1. Cholelithiasis and possibility of acute cholecystitis should be entertained in the appropriate clinical setting. 2. Choledocholithiasis is not excluded. 3. Anterior abdominal wall hernia without signs of incarceration or obstructio n. PE at Discharge GENERAL: This is a well-nourished, well-developed patient, in no apparent distress. CARDIOVASCULAR: irregular rhythmn, tachycardia RESPIRATORY: Clear to auscultation. Breath sounds equal bilaterally. No wheezes , rales, or rhonchi. GASTROINTESTINAL: Abdomen soft, nontender, no rebound, no guarding, nondistended , normoactive bowel sounds; colostomy with loose watery stools in place MUSCULOSKELETAL: Extremities without clubbing, cyanosis, or edema. NEURO: Alert & Oriented x4 to person, place, time, situation. Moves all ext x4 SKIN: multiple fine erythematous macular bilateral upper and lower ext and trunk Pt update on day of discharge Patient is feeling much better. Tolerating diet. Decrease output and loose stools from colostomy. Hospital Course These are the medical issues addressed during this hospitalization: Acute cholecystitis clinically improving Diarrhea -clinically improving after starting Lactinex -Transitioned to Levaquin 500mg and Flagyl 500mg TID p.o. during hospitalization and completed a seven-day course; she will not need any further antibiotics upon discharge to home.; ID is recommending likely to discontinue -General surgery consulted and appreciate recommendation to treat with antibiotics conservatively and nonsurgical conservative treatment due to patient being on chemotherapy and previous high risk complication for surgical procedures. Patient diet was restarted and advanced as tolerated.. atrial fib with RVR -patient had episode of A. fib with RVR due to not having Cardizem the hospital. We were able to restart metoprolol for rate control and have patient bring her home Cardizem to restart. leukocytosis -resolved Hypokalemia replete Hypocalcemia replete Hypomagnesemia supplement History of Left breast cancer Basal cell carcinoma - -on vismodegib - f/u with oncology -Follows up at [facility]. Patient had no active urinary tract infection on presentation as patient had 50, 000 to 100,000 mixed zaira in urine cultures contact dermatitis - ? due to detergent from sheet versus Azactam - improved on benadryl 25 mg IV prn Patient has gained maximum benefit from hospitalization and ready to be discharged to home with outpatient follow-up with Dr. Smith Pt Condition on Discharge: Good Discharge Disposition: Discharge Home Discharge Time: <= 30 minutes Discharge Instructions DIET: Follow Instructions for: As Tolerated, No Restrictions Activities you can perform: Regular-No Restrictions Follow up Referrals: Surgical - 08/31/17 with Nando Smith MD Appt set for August 31 at 9:30AM New Medications: Lactobacillus Acidophilus (Lactinex) 1 Chew 1 TAB CHEW DAILY for Nutritional Supplement, #5 TAB 0 Refills Continued Medications: Albuterol 6.7 GM Inh (Proventil Hfa 6.7 GM Inh) 90 Mcg/Act Aer 2 PUFF INH Q6H PRN for SHORTNESS OF BREATH, #1 INHALER 0 Refills Albuterol Neb (Albuterol Neb) 2.5 Mg/3 Ml Neb 2.5 MG NEB Q4HR NEB PRN for SHORTNESS OF BREATH, #60 NEBULE 0 Refills Cyclobenzaprine (Flexeril) 10 Mg Tab 10 MG PO TID for Muscle Spasm, #90 TAB 0 Refills Diltiazem ER 12 HR (Diltiazem ER 12 HR) 60 Mg Caper 60 MG PO DAILY, #60 CAP 0 Refills Epinephrine Inj (Epinephrine Inj) 0.15 Mg/0.3 Ml Inj 0.3 MG IM DIRECTED, #1 INJECTION 0 Refills Fluticasone Nasal [place] (Flonase Nasal [place]) 50 Mcg/Act [place] 50 MCG EACH NARE BID for Allergies, #1 BOTTLE 0 Refills Fluticasone-Vilanterol Inh (Breo Ellipta Inh) 200-25 Mcg/Act Inh 1 PUFF INH DAILY, #1 INHALER 0 Refills Use daily at the same time. Iron Dextran Inj (Infed Inj) 100 Mg/2 Ml Inj 100 MG IV-CENTRAL MONTHLY PRN for ANEMIA Levothyroxine (Tirosint) 13 Mcg Cap 13 MCG DAILY for Thyroid, #30 CAP 0 Refills Metoprolol Tartrate (Metoprolol Tartrate) 25 Mg Tab 12.5 MG PO BID, #60 TAB 0 Refills Montelukast (Singulair) 10 Mg Tab 10 MG PO HS, #30 TAB 0 Refills Ondansetron (Ondansetron) 8 Mg Tab 8 MG PO TID for Nausea/Vomiting, TAB 0 Refills Pantoprazole (Pantoprazole) 40 Mg Tab 40 MG PO BID for Reflux, #30 TAB 0 Refills Sumatriptan (Sumatriptan) 25 Mg Tab 25 MG PO ONCE PRN for MIGRAINE HEADACHE, TAB 0 Refills If a satisfactory response has not been obtained at 2 hours, a second dose may be administered Vismodegib (Erivedge) 150 Mg Cap Madyson Sidhu MD Aug 24, 2017 08:51
[2017-08-24] MEDS ORDERED: LACTOBACILLUS ACIDOPHILUS TAB PO ONE (09:00)
[2017-08-24 12:00] VITALS: BP 106/64; PULSE 80; RESP 20; TEMP 97.5; O2SAT 97
[2017-08-24] MEDS: FLUTICASONE 200 MCG/VILANTEROL 25 MCG INHALER INH SCH (12:31)
[2017-08-24] MEDS: FLUTICASONE PROPIONATE 50 MCG/ACT 16 GM NASAL SPRAY EACH NARE SCH (12:32)
[2017-08-24] MEDS: SODIUM CHLORIDE 0.9% FLUSH 10 ML FLUSH IV FLUSH SCH (12:32)
[2017-08-24] MEDS: METOPROLOL TARTRATE 25 MG TAB PO SCH ×2 (12:35→12:47)
[2017-08-24] MEDS: PANTOPRAZOLE SOD 40 MG DELAYED RELEASE TAB PO SCH (12:35)
[2017-08-24] MEDS: DILTIAZEM 60 MG PO SCH (12:46)
[2017-08-24] MEDS: HYDROCORTISONE 1% OINT 30 GM TUBE TOPICAL SCH (12:47)
[2017-08-24 13:38] VITALS: O2SAT 99
[2017-08-24] MEDS ORDERED: SODIUM CHLORIDE 0.9% FLUSH 10 ML FLUSH IVF PRN (14:00)
[2017-08-24] MEDS: ACETAMINOPHEN 325 MG TAB PO PRN (14:24)
== END 2017-08-24 15:34 | disposition home or self-care (01) | DRG 444 ==
LOC: NEPE 20:37 → NEDA 08-17 00:36 → N06A 08-17 01:55
PROVIDERS: ADMIT Family Medicine; ATTEND Family Medicine
DX: K80.00 Calculus of gallbladder with acute cholecystitis without obstruction (principal); A41.9 Sepsis, unspecified organism; J18.9 Pneumonia, unspecified organism; C84.A0 Cutaneous T-cell lymphoma, unspecified, unspecified site; I47.1 Supraventricular tachycardia; C50.919 Malignant neoplasm of unspecified site of unspecified female breast; E83.42 Hypomagnesemia; J44.0 Chronic obstructive pulmonary disease with (acute) lower respiratory infection; I48.91 Unspecified atrial fibrillation; N39.0 Urinary tract infection, site not specified; J98.11 Atelectasis; E83.51 Hypocalcemia; I10 Essential (primary) hypertension; R63.0 Anorexia; C44.41 Basal cell carcinoma of skin of scalp and neck; E89.0 Postprocedural hypothyroidism; E87.6 Hypokalemia; K43.5 Parastomal hernia without obstruction or gangrene; L27.0 Generalized skin eruption due to drugs and medicaments taken internally; T36.1X5A Adverse effect of cephalosporins and other beta-lactam antibiotics, initial encounter; R19.7 Diarrhea, unspecified; K21.9 Gastro-esophageal reflux disease without esophagitis; F41.9 Anxiety disorder, unspecified; Z85.3 Personal history of malignant neoplasm of breast; Z85.850 Personal history of malignant neoplasm of thyroid; Z85.6 Personal history of leukemia; Z88.0 Allergy status to penicillin; Z88.1 Allergy status to other antibiotic agents; Z88.6 Allergy status to analgesic agent; Z91.010 Allergy to peanuts; Z91.030 Bee allergy status; Z91.040 Latex allergy status; Z91.013 Allergy to seafood; Z93.3 Colostomy status
CPT/HCPCS: 71045; 71275; 74177; 76705; 80048; 80053; 80076; 81001; 83605; 83690; 83735; 84155; 84484; 84702; 85025; 85027; 85379; 85610; 85730; 87040; 87086; 93005; 94150; 96361; 96365; 96367; 96375; J0153; J0780; J1170; J1200; J1650; J1956; J2060; J2270; J2405; J3370; J3475; J3480; J7030; J7050; Q9967